=== PATIENT | male | born 1945 | race Caucasian/White ===

== ENCOUNTER → 2020-06-09 13:25 | Outpatient (BNVA) | payer MEDICARE, SELFPAY | PROVIDERS: PCP Family Medicine; Referring Provider Family Medicine; Visit Provider Internal Medicine | DX: I25.10 Atherosclerotic heart disease of native coronary artery without angina pectoris (principal); I44.0 Atrioventricular block, first degree; G47.33 Obstructive sleep apnea (adult) (pediatric); I12.9 Hypertensive chronic kidney disease with stage 1 through stage 4 chronic kidney disease, or unspecified chronic kidney disease; E11.22 Type 2 diabetes mellitus with diabetic chronic kidney disease; N18.9 Chronic kidney disease, unspecified; J44.9 Chronic obstructive pulmonary disease, unspecified | CPT/HCPCS: 99214 ==

== ENCOUNTER 2020-06-27 08:06 | Outpatient (REF) | payer MEDICARE, SELFPAY ==
[2020-06-27 10:02] LABS: Cholesterol 142 mg/dL; HDL Cholesterol 43 mg/dL; LDL Cholesterol Calculated 74 mg/dl; Triglycerides 128 mg/dL
== END 2020-06-27 08:07 | disposition home or self-care (01) ==
LOC: HO.LAB 08:06
PROVIDERS: PCP Family Medicine; Visit Provider Internal Medicine
DX: I25.10 Atherosclerotic heart disease of native coronary artery without angina pectoris (principal); E11.9 Type 2 diabetes mellitus without complications; Z78.9 Other specified health status
CPT/HCPCS: 80061

== ENCOUNTER 2020-08-24 13:04 | Outpatient (REF) | payer MEDICARE, SELFPAY ==
[2020-08-24 15:04] LABS: MANUAL DIFF FLAG NO
[2020-08-24 15:17] LABS: Basophils Absolute Auto 0.1 X10*3/uL (0.0-0.2); Basophils Percent Auto 0.7 % (0-2); Eosinophils Absolute Auto 0.4 X10*3/uL (0.0-0.4); Eosinophils Percent Auto 5.9 % (0-4); Hematocrit 37.8 % (42-52); Hemoglobin 12.8 g/dl (14.0-18.0); Imm Gran Abs Auto 0.02 X10*3/uL (0.00-0.03); Imm Gran Pct Auto 0.3 % (0.0-0.4); Lymphocytes Absolute Auto 1.5 X10*3/uL (1.2-4.9); Lymphocytes Percent Auto 21.7 % (20-40); Mean Corpuscular HGB Conc 33.9 g/dl (31.0-36.0); Mean Corpuscular Hemoglobin 29.6 pg (27.0-33.0); Mean Corpuscular Volume 87.3 fL (80-98); Monocytes Absolute Auto 0.5 X10*3/uL (0.1-1.2); Monocytes Percent Auto 7.4 % (2-11); Neutrophils Absolute Auto 4.5 X10*3/uL (2.0-8.3); Platelet Count 192 X10*3/uL (160-400); Red Blood Count 4.33 X10*6/uL (4.60-5.80); Red Cell Distribution Width 12.1 % (11.0-16.0)
[2020-08-24 15:25] LABS: Estimated Average Glucose 131 mg/dL; Hemoglobin A1c % 6.2 %
[2020-08-24 15:38] LABS: Alanine Aminotransferase 17 U/L (0-40); Albumin Level 4.2 g/dL (3.5-5.0); Alkaline Phosphatase 64 U/L (39-117); Anion Gap 15 (12-20); Aspartate Amino Transferase 18 U/L (5-37); Bilirubin Direct 0.3 mg/dL (0.0-0.5); Bilirubin Total 0.5 mg/dL (0.0-1.0); Blood Urea Nitrogen 32 mg/dL (9-16); Calcium 9.5 mg/dL (8.4-10.2); Carbon Dioxide 24 mmol/L (22-29); Chloride 103 mmol/L (96-108); Cholesterol 161 mg/dL; Estimated Glomerular Filt Rate 44; Glucose Random 110 mg/dL (60-115); HDL Cholesterol 46 mg/dL; LDL Cholesterol Calculated 90 mg/dl; Potassium 4.7 mmol/l (3.3-5.1); Sodium 137 mmol/L (135-145); Total Protein 7.3 g/dL (6.5-8.0); Triglycerides 128 mg/dL
[2020-08-24 16:02] LABS: Thyroid Stimulating Hormone 0.95 uIU/mL (0.32-4.0); Vitamin D 25-OH Total 40.8 ng/mL (>30)
[2020-08-24 17:16] LABS: Creatinine Urine 137.57 mg/dL
== END 2020-08-24 13:05 | disposition home or self-care (01) ==
LOC: HO.LAB 13:04
PROVIDERS: Visit Provider Family Medicine
DX: G47.33 Obstructive sleep apnea (adult) (pediatric) (principal); E11.9 Type 2 diabetes mellitus without complications; Z79.899 Other long term (current) drug therapy
CPT/HCPCS: 36415; 80048; 80061; 80076; 82043; 82306; 83036; 84439; 84443; 85025

== ENCOUNTER 2020-08-24 13:33 | Emergency (ER) | payer MEDICARE, SELFPAY ==
[2020-08-24 13:56] VITALS: BP 143/78; PULSE 59; RESP 16; TEMP 36.3; O2SAT 97; BMI 28.0
--- NOTE | 2020-08-24 14:51 | XR_ITS ---
EXAMINATION: XR HAND, LEFT CLINICAL INFORMATION: Third digit swelling and pain. COMPARISON: None TECHNIQUE: PA, lateral, and oblique views of the left hand. FINDINGS: There is loss of PIP and DIP joints of all digits with periarticular spurring DIP joints second, fifth digits. 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 No visible acute fracture or dislocation seen. XR/XR hand LT min 3V IMPRESSION: Degenerative arthritic changes. There is likely simple impose erosive changes PIP joint third digit with moderate soft tissue swelling. There is no underlying fracture or dislocation.
--- NOTE | 2020-08-24 15:54 | ED_ITS ---
HPI - Extremity Problem General Chief complaint: Extremity Injury, Upper Stated complaint: finger infection Time Seen by Provider: 08/24/20 14:51 Source: patient Mode of arrival: ambulatory Limitations: no limitations History of Present Illness HPI Narrative: Left middle finger swelling/redness for past 2 days. Location: left Relieving factors: nothing Associated symptoms: denies other symptoms Related Data Home Medications Medication Instructions Recorded Confirmed albuterol sulfate 2.5 mg INHALATION PRN 06/09/20 06/09/20 albuterol sulfate 90 mcg/actuation 0 mcg INHALATION 06/09/20 06/09/20 aerosol inhaler baclofen 10 mg tablet 10 mg PO TID 06/09/20 06/09/20 brimonidine 0.2 % eye drops 1 drp OPHTHALMIC (EYE) ONCE ml 06/09/20 06/09/20 candesartan 32 mg tablet 32 mg PO DAILY 06/09/20 06/09/20 cetirizine 10 mg tablet 10 mg PO DAILY 06/09/20 06/09/20 cholecalciferol (vitamin D3) 50 50 mcg PO DAILY 06/09/20 06/09/20 mcg (2,000 unit) capsule clonidine HCl 0.3 mg tablet 0 mg PO 06/09/20 06/09/20 epinephrine 0.3 mg/0.3 mL IM 06/09/20 06/09/20 injection, auto-injector erythromycin 5 mg/gram (0.5 %) eye 0 mg OPHTHALMIC (EYE) 06/09/20 06/09/20 ointment fluticasone 250 mcg-salmeterol 50 ea INHALATION 06/09/20 06/09/20 mcg/dose blistr powdr for inhalation hydrochlorothiazide 25 mg tablet 25 mg PO DAILY 06/09/20 06/09/20 lorazepam 1 mg tablet 0 mg PO 06/09/20 06/09/20 omeprazole 20 mg capsule,delayed 0 mg PO 06/09/20 06/09/20 release timolol maleate 0.5 % eye drops 1 drp OPHTHALMIC (EYE) DAILY ml 06/09/20 06/09/20 travoprost 0.004 % eye drops 0 drp OPHTHALMIC (EYE) 06/09/20 06/09/20 Previous Rx's Medication Instructions Recorded alirocumab 75 mg/mL subcutaneous 75 mg SUBCUT Q2W 90 Days #7 ml 08/23/20 pen injector cephalexin [Keflex] 250 mg PO BID 7 Days #14 cap 08/24/20 doxycycline monohydrate 100 mg PO BID #7 cap 08/24/20 prednisone 20 mg PO DAILY 5 Days #5 tab 08/24/20 Allergies Allergy/AdvReac Type Severity Reaction Status Date / Time amoxicillin [AMOXICILLIN] Allergy Severe Angioedema Verified 06/09/20 08:32 cephalexin [From KEFLEX] Allergy Severe Testicle Verified 06/09/20 08:32 swelling, Angioedema ezetimibe [Zetia] Allergy Severe Anaphylaxis Verified 06/09/20 08:32 Thqqpdj-Xyq-Dbo Reductase Allergy Severe Anaphylaxis Verified 06/09/20 08:32 Inhibitor [[id number] REDUCTASE INHIBITOR] diphenhydramine AdvReac Unknown Muscle Verified 06/09/20 08:32 [From BENADRYL] spasms/twitching Review of Systems Review of Systems: Constitutional: No Weight loss, No Fever, No Chills, No Night Sweats, No Fatigue, No Malaise ENT/Mouth: No Hearing loss, No Ear Pain, No Nasal Congestion, No Sinus Pain, No Hoarseness, No sore throat Eyes: No Eye Pain, No Swelling, No Redness, No Foreign Body, No Discharge, No Vision Changes Cardiovascular: No Chest Pain, No SOB, No Dyspnea on Exertion, No Orthopnea, No Edema, No Palpitations Respiratory: No Dyspnea Gastrointestinal: No abdominal Pain Musculoskeletal: No joint pain, No Myalgias, as noted in HPI Skin: No Skin Lesions, No rash Neuro: No Headache Psych: No Social Issues Heme/Lymph: No Bruising, No Bleeding,No Lymphadenopathy Endocrine: No Polyuria, No Polydipsia, No Temperature Intolerance Yes all other systems are reviewed and are negative [facility] Past Medical History Medical History (Updated 08/25/20 @ 00:00 by Abi Pedersen) 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 Mother No problems noted. Social History Social History Smoking Status: Former smoker Advance Directives: No Advance Directives Information Provided: Yes Physical Exam Vital Signs: Vital Signs: Last Vital Signs Temp 97.4 F 08/24/20 13:56 Pulse 59 08/24/20 13:56 Resp 16 08/24/20 13:56 BP 143/78 H 08/24/20 13:56 Pulse Ox 97 08/24/20 13:56 Body Mass Index 28.0 Reviewed Const: General: cooperative and healthy appearing; No acute distress or intoxicated appearing Nutritional Appearance: average body habitus Orientation/consciousness: patient oriented x3 Chest: Chest palpation & inspection: normal inspection of the chest Resp: Effort & Inspection: normal respiratory effort : General: Yes no CVA tenderness Back/Spine/Pelvis: Back: no CVA tenderness Skin: General skin exam: no rashes or lesions noted Neuro: General: patient oriented x3 Extrem: Other: General: Yes normal to inspection Course Course Course Narrative: X-ray shows degenerative arthritic changes there is likely simple imposed erosive changes of the PIP joint 3rd digit with moderate soft tissue swelling. No underlying fracture dislocation. Clinically inflammatory versus cellulitic versus arthritic. Will cover with short course prednisone and p.o. antibiotics. No systemic symptoms. Case discussed with orthopedics agreeable will see in office. Consultations Consultation #1: Panda FAYE Consultation #2: Case discussed with attending Dr. Rodriguez who evaluated the patient bedside Discharge Plan Discharge Clinical Impression: Cellulitis of finger of left hand Patient Disposition: Home, Self-Care Instructions: Cellulitis (ED) Prescriptions: New prednisone 20 mg tablet 20 mg PO DAILY 5 Days Qty: 5 RF: 0 doxycycline monohydrate 100 mg capsule 100 mg PO BID Qty: 7 RF: 0 cephalexin [Keflex] 250 mg capsule 250 mg PO BID 7 Days Qty: 14 RF: 0 No Action alirocumab [Praluent Pen] 75 mg/mL pen injector 75 mg subcut Q2W 90 Days Qty: 7 RF: 3 cholecalciferol (vitamin D3) 50 mcg (2,000 unit) capsule 50 mcg PO DAILY RF: 0 erythromycin 5 mg/gram (0.5 %) ointment 0 mg ophthalmic (eye) RF: 0 timolol maleate 0.5 % drops 1 drp ophthalmic (eye) DAILY RF: 0 omeprazole 20 mg capsule,delayed release(DR/EC) 0 mg PO RF: 0 brimonidine 0.2 % drops 1 drp ophthalmic (eye) ONCE RF: 0 candesartan 32 mg tablet 32 mg PO DAILY RF: 0 clonidine HCl 0.3 mg tablet 0 mg PO RF: 0 lorazepam 1 mg tablet 0 mg PO RF: 0 hydrochlorothiazide 25 mg tablet 25 mg PO DAILY RF: 0 fluticasone propion-salmeterol 250-50 mcg/dose blister with device inhalation RF: 0 albuterol sulfate 2.5 mg /3 mL (0.083 %) solution for nebulization 2.5 mg inhalation PRNRF: 0 epinephrine 0.3 mg/0.3 mL auto-injector IM RF: 0 albuterol sulfate 90 mcg/actuation HFA aerosol inhaler 0 mcg inhalation RF: 0 baclofen 10 mg tablet 10 mg PO TID RF: 0 travoprost 0.004 % drops 0 drp ophthalmic (eye) RF: 0 cetirizine 10 mg tablet 10 mg PO DAILY RF: 0 Referrals: Ezra Knight MD [Physician] - 5 days Interventions: ED Discharge Assessment Last Done: 08/24/20 16:57 Discharge Date/Time: 08/24/20 16:59
== END 2020-08-24 16:59 | disposition home or self-care (01) ==
PROVIDERS: Emergency Provider Emergency Medicine; PCP Family Medicine
DX: L03.012 Cellulitis of left finger (principal); E11.22 Type 2 diabetes mellitus with diabetic chronic kidney disease; I12.9 Hypertensive chronic kidney disease with stage 1 through stage 4 chronic kidney disease, or unspecified chronic kidney disease; N18.9 Chronic kidney disease, unspecified
CPT/HCPCS: 73130; 99283

== ENCOUNTER → 2020-11-10 08:16 | Outpatient (BNVA) | payer MEDICARE, SELFPAY | PROVIDERS: PCP Family Medicine; Visit Provider Internal Medicine | DX: I25.10 Atherosclerotic heart disease of native coronary artery without angina pectoris (principal); I44.0 Atrioventricular block, first degree; G47.33 Obstructive sleep apnea (adult) (pediatric); I12.9 Hypertensive chronic kidney disease with stage 1 through stage 4 chronic kidney disease, or unspecified chronic kidney disease; E11.22 Type 2 diabetes mellitus with diabetic chronic kidney disease; N18.9 Chronic kidney disease, unspecified; J44.9 Chronic obstructive pulmonary disease, unspecified; Z79.899 Other long term (current) drug therapy; Z78.9 Other specified health status; Z87.891 Personal history of nicotine dependence | CPT/HCPCS: Q3014 ==

== ENCOUNTER 2020-12-14 07:56 | Outpatient (REF) | payer MEDICARE, SELFPAY ==
[2020-12-14 08:09] LABS: COVID-19 Test Positive (Negative)
== END 2020-12-14 07:57 | disposition home or self-care (01) ==
LOC: HO.LAB 07:56
PROVIDERS: Visit Provider Internal Medicine
DX: Z20.822 Contact with and (suspected) exposure to COVID-19 (principal)
CPT/HCPCS: 36415; 87635; C9803

== ENCOUNTER 2020-12-23 12:21 | Emergency (ER) | payer MEDICARE, SELFPAY ==
--- NOTE | ~2020-12-23 | XR_ITS ---
EXAMINATION: XR CHEST CLINICAL INFORMATION: covid+ COMPARISON: 05/28/2019 TECHNIQUE: Frontal view of the chest was obtained. FINDINGS: Lungs appear relatively clear aside from a few calcified granulomas within the right midlung. No consolidation, pneumothorax, or pleural effusion. Cardiac and mediastinal contours are normal. Pulmonary vasculature is normal. No acute osseous findings. XR/XR chest 1V IMPRESSION: No acute pulmonary findings.
--- NOTE | 2020-12-23 12:58 | ED_ITS ---
HPI - SOB/Dyspnea General Chief Complaint: Upper Respiratory Symptoms Stated Complaint: covid + Time Seen by Provider: 12/23/20 12:56 Source: patient Mode of arrival: ambulatory History of Present Illness HPI Narrative: 75-year-old male with a past medical history of CKD, COPD, HTN, NATHANIEL, diabetes, 1st degree AV block, COVID-19 positive on 12/14/2020 presenting to the ED complaining of productive cough of yellow sputum x a couple days. D enies fever, chills, shortness of breath, chest pain, dominating, nausea/vomiting, LE edema, calf pain MD elicited complaint: cough Related Data Home Medications Medication Instructions Recorded Confirmed albuterol sulfate 2.5 mg INHALATION PRN 06/09/20 11/10/20 albuterol sulfate 90 mcg/actuation 0 mcg INHALATION 06/09/20 11/10/20 aerosol inhaler baclofen 10 mg tablet 10 mg PO TID 06/09/20 11/10/20 brimonidine 0.2 % eye drops 1 drp OPHTHALMIC (EYE) ONCE ml 06/09/20 11/10/20 candesartan 32 mg tablet 32 mg PO DAILY 06/09/20 11/10/20 cetirizine 10 mg tablet 10 mg PO DAILY 06/09/20 11/10/20 cholecalciferol (vitamin D3) 50 50 mcg PO DAILY 06/09/20 11/10/20 mcg (2,000 unit) capsule epinephrine 0.3 mg/0.3 mL IM 06/09/20 11/10/20 injection, auto-injector fluticasone 250 mcg-salmeterol 50 ea INHALATION 06/09/20 11/10/20 mcg/dose blistr powdr for inhalation hydrochlorothiazide 25 mg tablet 25 mg PO DAILY 06/09/20 11/10/20 timolol maleate 0.5 % eye drops 1 drp OPHTHALMIC (EYE) DAILY ml 06/09/20 11/10/20 travoprost 0.004 % eye drops 0 drp OPHTHALMIC (EYE) 06/09/20 11/10/20 amlodipine 10 mg tablet 10 mg PO DAILY 11/10/20 11/10/20 clonidine HCl 0.3 mg tablet 0.3 mg PO BID tab 11/10/20 11/10/20 lorazepam 1 mg tablet 1 mg PO DAILY PRN tab 11/10/20 11/10/20 omeprazole 20 mg capsule,delayed 20 mg PO DAILY cap 11/10/20 11/10/20 release sertraline 100 mg tablet 300 mg PO Q OTHER DAY PRN 11/10/20 11/10/20 triamcinolone acetonide 55 mcg INTRANASAL 11/10/20 11/10/20 nasal spray aerosol Previous Rx's Medication Instructions Recorded alirocumab 75 mg/mL subcutaneous 75 mg SUBCUT Q2W 90 Days #7 ml 11/10/20 pen injector azithromycin See Rx Instructions .ROUTE 12/23/20 .COMPLEX #6 tab benzonatate [Tessalon Perles] 100 mg PO TID PRN #14 cap 12/23/20 Allergies Allergy/AdvReac Type Severity Reaction Status Date / Time amoxicillin [AMOXICILLIN] Allergy Severe Angioedema Verified 12/23/20 13:04 cephalexin [From KEFLEX] Allergy Severe Testicle Verified 12/23/20 13:04 swelling, Angioedema ezetimibe [Zetia] Allergy Severe Anaphylaxis Verified 12/23/20 13:04 Bkdorzx-Ykx-Olo Reductase Allergy Severe Anaphylaxis Verified 12/23/20 13:04 Inhibitor [[id number]-OCL REDUCTASE INHIBITOR] diphenhydramine AdvReac Unknown Muscle Verified 12/23/20 13:04 [From BENADRYL] spasms/twitching Review of Systems Review of Systems: Constitutional: No Fever, No Chills, No Fatigue, No Malaise Cardiovascular: No Chest Pain, No SOB, No Edema Respiratory: + Cough, + Sputum, No Wheezing Gastrointestinal: No Nausea, No Vomiting, No Diarrhea, No Constipation, No Abdominal pain Musculoskeletal: No joint pain, No Myalgias, No Joint Swelling Skin: No Skin Lesions, No rash Neuro: No Weakness, No Numbness, No Headache PMFSH Past Medical History Attestation statement: The following information was validated with the patient. Medical History (Updated 12/23/20 @ 13:44 by NEYDA Lora) 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 Mother No problems noted. Social History Social History Smoking Status: Former smoker Advance Directives: No Advance Directives Information Provided: No Physical Exam Vital Signs: Vital Signs: Last Vital Signs Temp 98.0 F 12/23/20 13:00 Pulse 63 12/23/20 13:00 Resp 18 12/23/20 13:00 BP 126/71 12/23/20 13:00 Pulse Ox 96 12/23/20 13:47 Body Mass Index 28.0 Const: General: cooperative and healthy appearing Orientation/consciousness: patient oriented x3 Limitations: no limitations HENMT: Head: Yes normal to inspection Ears: hearing grossly normal bilaterally General nose exam: Normal external nose present Face and sinus: Yes normal facial exam Eyes: General: appearance normal, both eyes and all related structures EOM: EOMs intact bilaterally Neck: Neck: Yes normal visual inspection and Yes no meningeal signs Chest: Chest palpation & inspection: normal inspection of the chest Resp: Effort & Inspection: normal respiratory effort Auscultation: clear to auscultation bilaterally, no rales, no rhonchi and no wheezes Cardio: Rate: regular rate Heart sounds: S1 normal heart sound present and S2 normal heart sound present GI: Inspection: Yes normal to inspection Palpation (GI): Soft to palpation, nontender, no guarding and not rigid Skin: Rashes: no rashes Wounds: no wounds Neuro: General: patient oriented x3 and no meningeal signs Gait exam (Neuro): Normal gait present Extrem: General: Yes normal to inspection, Yes no pedal edema and Yes no calf tenderness Course Course Course Narrative: XR chest 1V IMPRESSION: No acute pulmonary findings. -patient ambulated in the ED with pulse ox maintaining saturations of 95-96 on r oom air without any difficulty breathing >> results discussed with patient. Due to symptomatology and risk factors will initiate patient on Z-Christiano and Tessalon Perles. Worrisome signs and symptoms and strict return precautions discussed. He verbalized understanding feel safe for discharge home MDM - SOB/Dyspnea MDM Narrative Medical decision making narrative: 75-year-old male with a past medical history of CKD, COPD, HTN, NATHANIEL, diabetes, 1st degree AV block, COVID-19 positive on 12/14/2020 presenting to the ED complaining of productive cough of yellow sputum x a couple days. On exam VS, NAD/well-appearing, lungs CTA, no pedal edema or calf tenderness. Concern for COVID-19/viral pneumonia vs superimposed bacterial pneumonia. Low concern for PE/ACS Plan: CXR Discharge Plan Discharge Clinical Impression: COVID-19 Patient Disposition: Home, Self-Care Instructions: COVID-19 (Coronavirus Disease 2019) (ED) Additional Instructions: Your x-ray was unremarkable today in the ED, her oxygen was good even with ambulation Azithromycin as antibiotic, take as prescribed Tessalon Perles for cough, take as needed Call your doctor for follow-up If her symptoms persist or worsen, constant worsening shortness breath, chest pain, fever unresolved with Tylenol or Motrin return to the ED Prescriptions: New azithromycin 250 mg tablet See Rx Instructions .ROUTE .COMPLEX Qty: 6 RF: 0 benzonatate [Tessalon Perles] 100 mg capsule 100 mg PO TID PRN (Reason: cough) Qty: 14 RF: 0 No Action cholecalciferol (vitamin D3) 50 mcg (2,000 unit) capsule 50 mcg PO DAILY RF: 0 timolol maleate 0.5 % drops 1 drp ophthalmic (eye) DAILY RF: 0 brimonidine 0.2 % drops 1 drp ophthalmic (eye) ONCE RF: 0 candesartan 32 mg tablet 32 mg PO DAILY RF: 0 hydrochlorothiazide 25 mg tablet 25 mg PO DAILY RF: 0 fluticasone propion-salmeterol 250-50 mcg/dose blister with device inhalation RF: 0 albuterol sulfate 2.5 mg /3 mL (0.083 %) solution for nebulization 2.5 mg inhalation PRNRF: 0 epinephrine 0.3 mg/0.3 mL auto-injector IM RF: 0 albuterol sulfate 90 mcg/actuation HFA aerosol inhaler 0 mcg inhalation RF: 0 baclofen 10 mg tablet 10 mg PO TID RF: 0 travoprost 0.004 % drops 0 drp ophthalmic (eye) RF: 0 cetirizine 10 mg tablet 10 mg PO DAILY RF: 0 clonidine HCl 0.3 mg tablet 0.3 mg PO BID RF: 0 lorazepam 1 mg tablet 1 mg PO DAILY PRNRF: 0 omeprazole 20 mg capsule,delayed release(DR/EC) 20 mg PO DAILY RF: 0 sertraline 100 mg tablet 300 mg PO Q OTHER DAY PRNRF: 0 amlodipine 10 mg tablet 10 mg PO DAILY RF: 0 triamcinolone acetonide 55 mcg aerosol,spray intranasal RF: 0 Praluent Pen 75 mg/mL pen injector 75 mg subcut Q2W 90 Days Qty: 7 RF: 4 Referrals: Andree Turner DO [Primary Care Provider] - 2 days
[2020-12-23 13:00] VITALS: BP 126/71; PULSE 63; RESP 18; TEMP 36.7; O2SAT 94; BMI 28.0
[2020-12-23 13:47] VITALS: O2SAT 96
--- NOTE | 2020-12-23 13:48 | PC.NURSE ---
PT AMBULATED AROUND ED 200 FT AND BACK TO ROOM WITH O2 SAT OF 96-95%. NO DIFF BREATHING, NO NASAL FLARING OR RETRACTIONS.
== END 2020-12-23 14:20 | disposition home or self-care (01) ==
PROVIDERS: Emergency Provider Emergency Medicine; PCP Family Medicine
DX: U07.1 COVID-19 (principal); E11.22 Type 2 diabetes mellitus with diabetic chronic kidney disease; I12.9 Hypertensive chronic kidney disease with stage 1 through stage 4 chronic kidney disease, or unspecified chronic kidney disease; N18.9 Chronic kidney disease, unspecified; J44.9 Chronic obstructive pulmonary disease, unspecified; Z79.899 Other long term (current) drug therapy
CPT/HCPCS: 71045; 99283

== ENCOUNTER 2021-03-02 10:20 | Outpatient (REF) | payer MEDICARE, SELFPAY ==
--- NOTE | ~2021-03-02 | US_ITS ---
EXAMINATION: US RETROPERITONEAL LIMITED (RENAL ONLY) CLINICAL INFORMATION: Renal cyst. COMPARISON: CT abdomen and pelvis 05/28/2019. Ultrasound abdomen complete 02/27/2019. Renal ultrasound 01/12/2019. TECHNIQUE: Real-time imaging of the kidneys. FINDINGS: RIGHT KIDNEY: 11.3 x 5.0 x 4.0 cm (SAG x AP x TRV). The kidney is normal in size, contour, and echogenicity. Renal cortical thickness is normal. No renal calculi or hydronephrosis. Multiple anechoic cysts. The largest cyst measures 2.9 x 2.3 x 2.4 cm in the midpole. LEFT KIDNEY: 10.7 x 5.8 x 4.0 cm (SAG x AP x TRV). The kidney is normal in size, contour, and echogenicity. Renal cortical thickness is normal. No renal calculi or hydronephrosis. There are multiple anechoic cysts. The largest cyst in the upper pole measures 3.3 x 3.4 x 3.2 cm. US/US renal BI IMPRESSION: Multiple bilateral anechoic cysts. No echogenic stones or hydronephrosis.
== END 2021-03-02 10:21 | disposition home or self-care (01) ==
LOC: HO.US 10:20
PROVIDERS: Visit Provider Family Medicine
DX: N28.1 Cyst of kidney, acquired (principal)
CPT/HCPCS: 76775

== ENCOUNTER → 2021-03-14 09:00 | Outpatient (BNVA) | payer MEDICARE, SELFPAY | PROVIDERS: PCP Family Medicine; Visit Provider Student in an Organized Health Care Education/Training Program | DX: M19.042 Primary osteoarthritis, left hand (principal) | CPT/HCPCS: 99202 ==

== ENCOUNTER → 2021-05-15 10:38 | Outpatient (BNVA) | payer MEDICARE, SELFPAY | PROVIDERS: PCP Family Medicine; Referring Provider Family Medicine; Visit Provider Internal Medicine | DX: I25.10 Atherosclerotic heart disease of native coronary artery without angina pectoris (principal); I44.0 Atrioventricular block, first degree; G47.33 Obstructive sleep apnea (adult) (pediatric); E11.9 Type 2 diabetes mellitus without complications; I10 Essential (primary) hypertension; Z78.9 Other specified health status | CPT/HCPCS: 93005; 99212 ==

== ENCOUNTER → 2021-06-05 08:14 | Outpatient (REF) | payer MEDICARE, SELFPAY ==
[2021-06-05 09:28] LABS: Hematocrit 36.4 % (42-52); Hemoglobin 12.6 g/dl (14.0-18.0); Mean Corpuscular HGB Conc 34.6 g/dl (31.0-36.0); Mean Corpuscular Hemoglobin 29.5 pg (27.0-33.0); Mean Corpuscular Volume 85.2 fL (80-98); Mean Platelet Volume 9.8 fL (9.4-12.4); Platelet Count 152 X10*3/uL (160-400); Red Blood Count 4.27 X10*6/uL (4.60-5.80); Red Cell Distribution Width 12.5 % (11.0-16.0); White Blood Count 6.5 X10*3/uL (4.8-10.8)
[2021-06-05 09:46] LABS: Estimated Average Glucose 117 mg/dL; Hemoglobin A1c % 5.7 %
[2021-06-05 09:51] LABS: Alanine Aminotransferase 15 U/L (0-40); Albumin Level 4.2 g/dL (3.5-5.0); Alkaline Phosphatase 62 U/L (39-117); Anion Gap 13 (12-20); Aspartate Amino Transferase 17 U/L (5-37); Bilirubin Direct 0.2 mg/dL (0.0-0.5); Bilirubin Total 0.3 mg/dL (0.0-1.0); Blood Urea Nitrogen 33 mg/dL (9-16); Calcium 9.9 mg/dL (8.4-10.2); Carbon Dioxide 26 mmol/L (22-29); Chloride 103 mmol/L (96-108); Cholesterol 143 mg/dL; Estimated Glomerular Filt Rate 47; Glucose Random 135 mg/dL (60-115); HDL Cholesterol 47 mg/dL; Iron 67 mcg/dL (45-160); LDL Cholesterol Calculated 77 mg/dl; Percent Iron Saturation 17 % (15-50); Potassium 4.6 mmol/L (3.3-5.1); Sodium 137 mmol/L (135-145); Total Iron Binding Capacity 388 mcg/dL (228-428); Total Protein 7.1 g/dL (6.5-8.0); Triglycerides 98 mg/dL; Unsaturated Iron Binding 321 ug/dL
[2021-06-05 10:14] LABS: Ferritin 83 ng/mL (20-250); Free T4 (Free Thyroxine) 0.91 ng/dL (0.71-1.85); Thyroid Stimulating Hormone 1.64 uIU/mL (0.32-4.0); Vitamin D 25-OH Total 42.6 ng/mL (>30)
[2021-06-05 10:19] LABS: Creatinine Urine 85.73 mg/dL; Microalbum/Creatinine Ratio Ur 10.4 ug/mg cr
[2021-06-05 10:40] LABS: Folate 9.1 ng/mL (> or = 4.0); Vitamin B12 225 pg/mL (200-900)
== END ==
LOC: HO.SL 08:14
PROVIDERS: Absent Provider Family Medicine; PCP Family Medicine; Visit Provider Internal Medicine
DX: I12.9 Hypertensive chronic kidney disease with stage 1 through stage 4 chronic kidney disease, or unspecified chronic kidney disease (principal); E11.22 Type 2 diabetes mellitus with diabetic chronic kidney disease; N18.30 Chronic kidney disease, stage 3 unspecified
CPT/HCPCS: 36415; 80048; 80061; 80076; 82043; 82306; 82607; 82728; 82746; 83036; 83540; 84439; 84443; 85027

== ENCOUNTER 2021-09-28 15:00 | Outpatient (REF) | payer SELFPAY | END 2021-09-28 15:01 | disposition home or self-care (01) | LOC: HO.HAP 15:00 | PROVIDERS: Visit Provider Family Medicine | DX: Z13.89 Encounter for screening for other disorder (principal) ==

== ENCOUNTER → 2022-01-23 08:45 | Outpatient (REF) | payer MEDICARE, SELFPAY | LOC: HO.SL 08:45 | PROVIDERS: PCP Family Medicine; Visit Provider Internal Medicine | DX: G47.33 Obstructive sleep apnea (adult) (pediatric) (principal) | CPT/HCPCS: 95806 ==

== ENCOUNTER → 2022-03-06 09:19 | Outpatient (BNVA) | payer OTHER, SELFPAY | PROVIDERS: PCP Family Medicine; Visit Provider Internal Medicine | DX: G47.33 Obstructive sleep apnea (adult) (pediatric) (principal); J44.9 Chronic obstructive pulmonary disease, unspecified | CPT/HCPCS: 99202 ==

== ENCOUNTER → 2022-03-08 10:12 | Outpatient (BNVA) | payer OTHER, SELFPAY | PROVIDERS: PCP Family Medicine; Referring Provider Family Medicine; Visit Provider Internal Medicine | DX: I25.10 Atherosclerotic heart disease of native coronary artery without angina pectoris (principal); I44.0 Atrioventricular block, first degree; G47.33 Obstructive sleep apnea (adult) (pediatric); E11.9 Type 2 diabetes mellitus without complications; I10 Essential (primary) hypertension; Z78.9 Other specified health status; Z79.82 Long term (current) use of aspirin; Z79.899 Other long term (current) drug therapy | CPT/HCPCS: 99212 ==

== ENCOUNTER 2022-04-03 07:50 | Outpatient (REF) | payer OTHER, SELFPAY ==
--- NOTE | 2022-04-03 09:11 | PFT_ITS ---
Forced vital capacity 96%, FEV1 100%, FEV1/FVC ratio is 75, [id number] 103%, and MVV 84%. After bronchodilator therapy, no significant changes noted. Total lung capacity 91%. Residual volume is 93%. Diffusion capacity is 60. CONCLUSION: Normal pulmonary function test and no evidence of obstructive or restrictive pulmonary disorder. Slight decrease in diffusion capacity is nonspecific, may be due to pulmonary emphysema and also nonpulmonary factors for which clinical correlation is recommended. Compared to the results of 11/26/2018, there is no significant change. Romero Castro MD MSB/MODL / [id number]
== END 2022-04-03 07:51 | disposition home or self-care (01) ==
LOC: HO.RESP 07:50
PROVIDERS: PCP Family Medicine; Visit Provider Internal Medicine
DX: J44.9 Chronic obstructive pulmonary disease, unspecified (principal)
CPT/HCPCS: 94060; 94727; 94729

== ENCOUNTER → 2022-04-16 09:05 | Outpatient (BNVA) | payer OTHER, SELFPAY | PROVIDERS: PCP Family Medicine; Visit Provider Internal Medicine | DX: G47.33 Obstructive sleep apnea (adult) (pediatric) (principal); J44.9 Chronic obstructive pulmonary disease, unspecified | CPT/HCPCS: 99212 ==

== ENCOUNTER 2022-07-19 08:13 | Outpatient (REF) | payer OTHER, SELFPAY ==
[2022-07-19 08:28] LABS: MANUAL DIFF FLAG NO
[2022-07-19 08:40] LABS: Basophils Absolute Auto 0.1 X10*3/uL (0.0-0.2); Eosinophils Absolute Auto 0.4 X10*3/uL (0.0-0.4); Eosinophils Percent Auto 7.5 % (0-4); Hematocrit 40.7 % (42.0-52.0); Hemoglobin 13.9 g/dl (14.0-18.0); Imm Gran Abs Auto 0.02 X10*3/uL (0.00-0.03); Imm Gran Pct Auto 0.3 % (0.0-0.4); Lymphocytes Absolute Auto 1.3 X10*3/uL (1.2-4.9); Lymphocytes Percent Auto 22.3 % (20-40); Mean Corpuscular HGB Conc 34.2 g/dl (31.0-36.0); Mean Corpuscular Hemoglobin 29.5 pg (27.0-33.0); Mean Corpuscular Volume 86.4 fL (80.0-98.0); Mean Platelet Volume 9.7 fL (9.4-12.4); Monocytes Absolute Auto 0.5 X10*3/uL (0.1-1.2); Neutrophils Absolute Auto 3.5 x10*3/uL (2.0-8.3); Neutrophils Percent Auto 59.9 % (45-73); Platelet Count 143 X10*3/uL (160-400); Red Blood Count 4.71 X10*6/uL (4.60-5.80); Red Cell Distribution Width 12.9 % (11.0-16.0); White Blood Count 5.9 X10*3/uL (4.8-10.8)
[2022-07-19 08:57] LABS: Estimated Average Glucose 120 mg/dL; Hemoglobin A1c % 5.8 %
[2022-07-19 09:07] LABS: Iron 62 mcg/dL (45-160); Percent Iron Saturation 17 % (15-50); Total Iron Binding Capacity 371 mcg/dL (228-428); Unsaturated Iron Binding 309 ug/dL
[2022-07-19 09:38] LABS: Alanine Aminotransferase 15 U/L (0-40); Albumin Level 4.2 g/dL (3.5-5.0); Alkaline Phosphatase 63 U/L (39-117); Anion Gap 12 (12-20); Aspartate Amino Transferase 15 U/L (5-37); Bilirubin Direct 0.2 mg/dL (0.0-0.5); Bilirubin Total 0.4 mg/dL (0.0-1.0); Blood Urea Nitrogen 28 mg/dL (9-16); Calcium 9.7 mg/dL (8.4-10.2); Carbon Dioxide 27 mmol/L (22-29); Chloride 107 mmol/L (96-108); Cholesterol 147 mg/dL; Estimated Glomerular Filt Rate 50; Free T4 (Free Thyroxine) 1.18 ng/dL (0.71-1.85); Glucose Random 134 mg/dL (60-115); HDL Cholesterol 45 mg/dL; LDL Cholesterol Calculated 68 mg/dl; Potassium 4.5 mmol/L (3.3-5.1); Sodium 141 mmol/L (135-145); Thyroid Stimulating Hormone 1.21 uIU/mL (0.32-4.0); Total Protein 7.2 g/dL (6.5-8.0); Triglycerides 174 mg/dL; Vitamin D 25-OH Total 41.8 ng/mL (>30)
[2022-07-19 09:51] LABS: Creatinine Urine 95.66 mg/dL; Microalbum/Creatinine Ratio Ur 153.6 ug/mg cr
== END 2022-07-19 08:14 | disposition home or self-care (01) ==
LOC: HO.LAB 08:13
PROVIDERS: Physician Assistant; PCP Family Medicine; Visit Provider Family Medicine
DX: Z01.818 Encounter for other preprocedural examination (principal); E11.22 Type 2 diabetes mellitus with diabetic chronic kidney disease; E78.5 Hyperlipidemia, unspecified; I10 Essential (primary) hypertension; Z79.899 Other long term (current) drug therapy; Z86.2 Personal history of diseases of the blood and blood-forming organs and certain disorders involving the immune mechanism
CPT/HCPCS: 36415; 80048; 80061; 80076; 82043; 82306; 83036; 83540; 84439; 84443; 85025; 99202

== ENCOUNTER → 2022-12-04 08:16 | Outpatient (BNVA) | payer OTHER, SELFPAY | PROVIDERS: PCP Family Medicine; Visit Provider Internal Medicine | DX: G47.33 Obstructive sleep apnea (adult) (pediatric) (principal); J44.9 Chronic obstructive pulmonary disease, unspecified | CPT/HCPCS: 99212 ==

== ENCOUNTER 2022-12-24 15:00 | Outpatient (REF) | payer SELFPAY | END 2022-12-24 15:01 | disposition home or self-care (01) | LOC: HO.HAP 15:00 | PROVIDERS: Visit Provider Family Medicine | DX: Z13.89 Encounter for screening for other disorder (principal) ==

== ENCOUNTER 2023-02-23 12:30 | Emergency (ER) | payer OTHER, MEDICAID, SELFPAY ==
[2023-02-23 12:46] VITALS: BP 190/86; PULSE 67; RESP 18; TEMP 37; O2SAT 98; BMI 28.8
--- NOTE | 2023-02-23 12:46 | ED_ITS ---
HPI - General Adult General Chief complaint: Dizziness Stated complaint: high bp Time Seen by Provider: 02/23/23 16:12 Source: patient Mode of arrival: ambulatory Limitations: no limitations History of Present Illness HPI narrative: History of chronic hypertension on multiple medication including clonidine 0.3 mg twice daily Candesartan 32 mg daily amlodipine 10 mg daily and been having fluctuating blood pressure all the time but lately has been high since yesterday checked the blood pressure was 202/118 at 2 pm and was feeling slightly dizzy on arrival patient's blood pressure was 190/86 repeat blood pressure was 186/77 with pulse rate of 62 patient had this problem off and on in the past had only 1 cup of coffee today no chest pain no palpitation no headache no vomiting no urinary symptoms Related Data Home Medications Medication Instructions Recorded Confirmed albuterol sulfate 2.5 mg/3 mL 2.5 mg inhalation PRN 06/09/20 12/04/22 (0.083 %) solution for nebulization candesartan 32 mg tablet 32 mg PO DAILY 06/09/20 12/04/22 cetirizine 10 mg tablet 10 mg PO DAILY 06/09/20 12/04/22 cholecalciferol (vitamin D3) 50 50 mcg PO DAILY 06/09/20 12/04/22 mcg (2,000 unit) capsule epinephrine 0.3 mg/0.3 mL IM 06/09/20 12/04/22 injection, auto-injector timolol maleate 0.5 % eye drops 1 drp ophthalmic (eye) DAILY 06/09/20 12/04/22 travoprost 0.004 % eye drops 0 drp ophthalmic (eye) 06/09/20 12/04/22 amlodipine 10 mg tablet 10 mg PO DAILY 11/10/20 12/04/22 clonidine HCl 0.3 mg tablet 0.3 mg PO BID 11/10/20 12/04/22 lorazepam 1 mg tablet 1 mg PO DAILY PRN 11/10/20 12/04/22 omeprazole 20 mg capsule,delayed 20 mg PO DAILY 11/10/20 12/04/22 release sertraline 100 mg tablet 150 mg PO DAILY 03/14/21 12/04/22 aspirin 81 mg tablet,delayed 81 mg PO DAILY 03/08/22 12/04/22 release (Adult Low Dose Aspirin) Previous Rx's Medication Instructions Recorded alirocumab 75 mg/mL subcutaneous 75 mg subcut Q2W 90 days #7 mL 10/01/22 pen injector (Praluent Pen) Allergies Allergy/AdvReac Type Severity Reaction Status Date / Time amoxicillin [AMOXICILLIN] Allergy Severe Angioedema Verified 02/23/23 15:42 cephalexin [From KEFLEX] Allergy Severe Testicle Verified 02/23/23 15:42 swelling, Angioedema ezetimibe [Zetia] Allergy Severe Anaphylaxis Verified 02/23/23 15:42 hydrochlorothiazide Allergy Severe dehydrate Verified 02/23/23 15:42 Hvmbcgo-[id number]-LlJ Reductase Allergy Severe Anaphylaxis Verified 02/23/23 15:42 Inhibitor [[id number] REDUCTASE INHIBITOR] diphenhydramine AdvReac Unknown Muscle Verified 02/23/23 15:42 [From BENADRYL] spasms/twitching Review of Systems Review of Systems: Yes all other systems are reviewed and are negative [facility] Past Medical History Medical History 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 Mother No problems noted. Social History Social History Patient Tobacco Use Status: Former Tobacco user Tobacco use type: Cigarette Cigarettes Per Day: 20 Years Smoked: 20 Smoked in Last 30 Days: Yes e-Cigarette/Vaping Use: Never Used Use of substances other than those prescribed or required for medical reasons: Yes Substance Use Type: Marijuana Substance Use Frequency: Daily Substance Use Frequency Other:: uses THC for arthritis daily ( cream) Last Used Substance: Days (ago) Any prior treatment program specific to substance use: No Advance Directives: No Advance Directives Information Provided: No Physical Exam ED Vital Signs: Vital Signs - 24 hr 02/23/23 12:46 02/23/23 14:44 02/23/23 17:15 Temperature 98.6 F 98.2 F Pulse Rate 67 62 59 Respiratory Rate 18 14 20 Blood Pressure 190/86 H 186/77 H 172/85 H Pulse Oximetry 98 97 96 Oxygen Delivery Method Room Air Room Air Room Air 02/23/23 17:15 02/23/23 17:16 02/23/23 17:17 Temperature Pulse Rate 59 64 66 Respiratory Rate Blood Pressure 172/85 H 169/85 H 184/88 H Pulse Oximetry Oxygen Delivery Method 02/23/23 17:35 Temperature 98.1 F Pulse Rate 59 Respiratory Rate 13 Blood Pressure 189/78 H Pulse Oximetry 97 Oxygen Delivery Method Room Air BMI result Body Mass Index 28.8 Appearance: Alert. Oriented X3. No acute distress. Eyes: PERRLA, No Nystagmus ENT: Pharynx normal. Oral Mucosa moist Neck: Normal inspection. Neck supple. CVS: Normal heart rate and rhythm. Pulses normal. Respiratory: No respiratory distress. Equal air entry bilateral, no wheezing/rales/rhonchi Abdomen: Soft and nontender. Bowel sounds are present, no mass palpable, no CVA tenderness Skin: Skin warm and dry. Normal skin color. Normal skin turgor. Extremities: No lower extremity edema. No calf tenderness Neuro: Oriented X 3. No motor deficit. No sensory deficit.No cerebellar signs , cranial nerves II-XII intact Course Course Course Narrative: This is an RME: Additional HPI, ROS, PE not included below will be deferred to primary provider. Patient is a 77-year-old male who presents to emergency department with reports of dizziness since yesterday, initially intermittent, now constant, made worse with position changes. History of vertigo, but this feels different and that his entire body feels weak. Today with hypertension, took his routine antihypertensives this morning; clonidine. Denies any pain, fevers, shortness of breath. Denies any recent medication changes. Plan: Labs, urinalysis, EKG Medical Decision Making Medical Decision Making MDM Narrative: Patient chronic hypertension with frequent episodic elevation of the blood pressure on multiple medications came here for elevated blood pressure with dizziness during stay in the ER patient felt better blood pressure improved to 166/81 patient is due for his clonidine at 20:00 at this time patient is asymptomatic will check orthostatic advised to follow with indirect sales representative and to take clonidine 1.5 mg as needed for hypertension Lab Data [facility] Lab Attestation statement: I reviewed the patient's lab results. 02/23/23 13:05 02/23/23 13:05 Labs: Lab Results 02/23/23 02/23/23 02/23/23 Range/Units 13:05 13:05 13:05 WBC 5.4 (4.8-10.8) X10*3/uL RBC 4.54 L (4.60-5.80) X10*6/uL Hgb 13.5 L (14.0-18.0) g/dl Hct 38.6 L (42.0-52.0) % MCV 85.0 (80.0-98.0) fL MCH 29.7 (27.0-33.0) pg MCHC 35.0 (31.0-36.0) g/dl RDW 12.8 (11.0-16.0) % Plt Count 153 L (160-400) X10*3/uL MPV 9.4 (9.4-12.4) fL Immature Gran % (Auto) 0.2 (0.0-0.4) % Neut % (Auto) 64.6 (45-73) % Lymph % (Auto) 20.2 (20-40) % [place] % (Auto) 7.7 (2-11) % Eos % (Auto) 6.7 H (0-4) % Baso % (Auto) 0.6 (0-2) % Lymph # (Auto) 1.1 L (1.2-4.9) X10*3/uL [place] # (Auto) 0.4 (0.1-1.2) X10*3/uL Eos # (Auto) 0.4 (0.0-0.4) X10*3/uL Baso # (Auto) 0.0 (0.0-0.2) X10*3/uL Abs Immat Gran (auto) 0.01 (0.00-0.03) X10*3/uL Absolute Neuts (auto) 3.5 (2.0-8.3) x10*3/uL Absolute Nucleated RBC 0.000 (0.0-0.012) X10*3/uL Nucleated RBC % (auto) 0.0 (0.0-0.2) /100WBC Sodium 138 (135-145) mmol/L Potassium 4.4 (3.3-5.1) mmol/L Chloride 104 (96-108) mmol/L Carbon Dioxide 25 (22-29) mmol/L Anion Gap 13 (12-20) BUN 21 H (9-16) mg/dL Creatinine 1.14 (0.5-1.4) mg/dL Estim Creat Clear Calc 60.6 Estimated GFR > 60 Random Glucose 116 H (60-115) mg/dL Calcium 10.4 H D (8.4-10.2) mg/dL Magnesium 1.8 (1.6-2.6) mg/dL Total Bilirubin 0.7 (0.0-1.0) mg/dL AST 18 (5-37) U/L ALT 16 (0-40) U/L Alkaline Phosphatase 63 (39-117) U/L Troponin I High Sens < 2.7 (<3.5-35.0) ng/L B-Natriuretic Peptide (<100) pg/mL Total Protein 7.5 (6.5-8.0) g/dL Albumin 4.3 (3.5-5.0) g/dL Urine Color Urine Appearance Urine pH (5.0-9.0) Ur Specific [place] (1.005-1.025) Urine Protein (Neg-Trace) mg/dL Urine Glucose (UA) (Negative) mg/dL Urine Ketones (Negative) mg/dL Urine Blood (Negative) Urine Nitrite (Negative) Ur Leukocyte Esterase (Negative) 02/23/23 02/23/23 Range/Units 13:05 15:39 WBC (4.8-10.8) X10*3/uL RBC (4.60-5.80) X10*6/uL Hgb (14.0-18.0) g/dl Hct (42.0-52.0) % MCV (80.0-98.0) fL MCH (27.0-33.0) pg MCHC (31.0-36.0) g/dl RDW (11.0-16.0) % Plt Count (160-400) X10*3/uL MPV (9.4-12.4) fL Immature Gran % (Auto) (0.0-0.4) % Neut % (Auto) (45-73) % Lymph % (Auto) (20-40) % [place] % (Auto) (2-11) % Eos % (Auto) (0-4) % Baso % (Auto) (0-2) % Lymph # (Auto) (1.2-4.9) X10*3/uL [place] # (Auto) (0.1-1.2) X10*3/uL Eos # (Auto) (0.0-0.4) X10*3/uL Baso # (Auto) (0.0-0.2) X10*3/uL Abs Immat Gran (auto) (0.00-0.03) X10*3/uL Absolute Neuts (auto) (2.0-8.3) x10*3/uL Absolute Nucleated RBC (0.0-0.012) X10*3/uL Nucleated RBC % (auto) (0.0-0.2) /100WBC Sodium (135-145) mmol/L Potassium (3.3-5.1) mmol/L Chloride (96-108) mmol/L Carbon Dioxide (22-29) mmol/L Anion Gap (12-20) BUN (9-16) mg/dL Creatinine (0.5-1.4) mg/dL Estim Creat Clear Calc Estimated GFR Random Glucose (60-115) mg/dL Calcium (8.4-10.2) mg/dL Magnesium (1.6-2.6) mg/dL Total Bilirubin (0.0-1.0) mg/dL AST (5-37) U/L ALT (0-40) U/L Alkaline Phosphatase (39-117) U/L Troponin I High Sens (<3.5-35.0) ng/L B-Natriuretic Peptide 74 (<100) pg/mL Total Protein (6.5-8.0) g/dL Albumin (3.5-5.0) g/dL Urine Color Yellow Urine Appearance Clear Urine pH 7.0 (5.0-9.0) Ur Specific [place] 1.010 (1.005-1.025) Urine Protein Trace (Neg-Trace) mg/dL Urine Glucose (UA) Negative (Negative) mg/dL Urine Ketones Negative (Negative) mg/dL Urine Blood Negative (Negative) Urine Nitrite Negative (Negative) Ur Leukocyte Esterase Negative (Negative) Independent Interpretation I performed an independent interpretation of an: EKG Interpretation: Normal sinus rhythm heart rate 62 beats per minute , 1st degree I AV block no acute ST-T changes no acute ischemia Discharge Plan Discharge Clinical Impression: Essential (primary) hypertension Patient Disposition: Home, Self-Care Instructions: Chronic Hypertension (ED) Additional Instructions: Continue blood pressure medications Check blood pressure before taking medications and during the daytime If during daytime blood pressure is higher than 160/100 you may take half a tablet of 0.3 clonidine and recheck blood pressure Follow-up with the indirect sales representative next week as scheduled Prescriptions: No Action Praluent Pen 75 mg/mL pen injector 75 mg subcut Q2W 90 Days Qty: 7 4RF cholecalciferol (vitamin D3) 50 mcg (2,000 unit) capsule 50 mcg PO DAILY timolol maleate 0.5 % drops 1 drp ophthalmic (eye) DAILY candesartan 32 mg tablet 32 mg PO DAILY albuterol sulfate 2.5 mg /3 mL (0.083 %) solution for nebulization 2.5 mg inhalation PRN epinephrine 0.3 mg/0.3 mL auto-injector IM travoprost 0.004 % drops 0 drp ophthalmic (eye) cetirizine 10 mg tablet 10 mg PO DAILY clonidine HCl 0.3 mg tablet 0.3 mg PO BID lorazepam 1 mg tablet 1 mg PO DAILY PRN omeprazole 20 mg capsule,delayed release(DR/EC) 20 mg PO DAILY amlodipine 10 mg tablet 10 mg PO DAILY sertraline 100 mg tablet 150 mg PO DAILY aspirin [Adult Low Dose Aspirin] 81 mg tablet,delayed release (DR/EC) 81 mg PO DAILY Interventions: ED Discharge Assessment Last Done: 02/23/23 17:40 Discharge Date/Time: 02/23/23 17:41
--- NOTE | 2023-02-23 12:50 | ECG_ITS ---
Test Reason : HYPERTENTION,DIZZINESS Blood Pressure : / mmHG Vent. Rate : 062 BPM Atrial Rate : 062 BPM P-R Int : 346 ms QRS Dur : 092 ms QT Int : 418 ms P-R-T Axes : -01 -23 033 degrees QTc Int : 424 ms Sinus rhythm with 1st degree A-V block Otherwise normal ECG When compared with ECG of 28-MAY-2019 09:32, No significant change was found Referred By: Stefani Miller Electronically Signed By:KEVIN WHITTAKER
[2023-02-23 13:12] LABS: MANUAL DIFF FLAG NO
[2023-02-23 13:17] LABS: Basophils Percent Auto 0.6 % (0-2); Eosinophils Absolute Auto 0.4 X10*3/uL (0.0-0.4); Eosinophils Percent Auto 6.7 % (0-4); Hematocrit 38.6 % (42.0-52.0); Hemoglobin 13.5 g/dl (14.0-18.0); Imm Gran Abs Auto 0.01 X10*3/uL (0.00-0.03); Imm Gran Pct Auto 0.2 % (0.0-0.4); Lymphocytes Absolute Auto 1.1 X10*3/uL (1.2-4.9); Lymphocytes Percent Auto 20.2 % (20-40); Mean Corpuscular Hemoglobin 29.7 pg (27.0-33.0); Mean Platelet Volume 9.4 fL (9.4-12.4); Monocytes Absolute Auto 0.4 X10*3/uL (0.1-1.2); Monocytes Percent Auto 7.7 % (2-11); Neutrophils Absolute Auto 3.5 x10*3/uL (2.0-8.3); Neutrophils Percent Auto 64.6 % (45-73); Platelet Count 153 X10*3/uL (160-400); Red Blood Count 4.54 X10*6/uL (4.60-5.80); Red Cell Distribution Width 12.8 % (11.0-16.0); White Blood Count 5.4 X10*3/uL (4.8-10.8)
[2023-02-23 13:35] LABS: Alanine Aminotransferase 16 U/L (0-40); Albumin Level 4.3 g/dL (3.5-5.0); Alkaline Phosphatase 63 U/L (39-117); Anion Gap 13 (12-20); Aspartate Amino Transferase 18 U/L (5-37); Bilirubin Total 0.7 mg/dL (0.0-1.0); Blood Urea Nitrogen 21 mg/dL (9-16); Calcium 10.4 mg/dL (8.4-10.2); Carbon Dioxide 25 mmol/L (22-29); Chloride 104 mmol/L (96-108); Creatinine Clr Calc Pharmacy 60.6; Estimated Glomerular Filt Rate > 60; Glucose Random 116 mg/dL (60-115); Magnesium 1.8 mg/dL (1.6-2.6); Potassium 4.4 mmol/L (3.3-5.1); Sodium 138 mmol/L (135-145); Total Protein 7.5 g/dL (6.5-8.0)
[2023-02-23 13:41] LABS: B Type Natriuretic Peptide 74 pg/mL (<100)
[2023-02-23 13:42] LABS: Troponin-I High Sensitivity < 2.7 ng/L (<3.5-35.0)
[2023-02-23 14:44] VITALS: BP 186/77; PULSE 62; RESP 14; O2SAT 97
[2023-02-23 15:48] LABS: Appearance Urine Clear; Color Urine Yellow; Glucose Urine UA Negative (Negative); Leukocyte Esterase Urine Negative (Negative); Nitrite Urine Negative (Negative); Urine Blood Negative (Negative); Urine Ketones Negative (Negative); Urine Protein Trace mg/dL (Neg-Trace)
[2023-02-23 17:15] VITALS: BP 172/85; PULSE 59; RESP 20; TEMP 36.8; O2SAT 96
[2023-02-23 17:16] VITALS: BP 169/85; PULSE 64
[2023-02-23 17:17] VITALS: BP 184/88; PULSE 66
[2023-02-23 17:35] VITALS: BP 189/78; PULSE 59; RESP 13; TEMP 36.7; O2SAT 97
--- NOTE | 2023-02-23 17:35 | PC.NURSE ---
no need for a swallow eval per MD
== END 2023-02-23 17:41 | disposition home or self-care (01) ==
PROVIDERS: Nurse Practitioner Family; Emergency Provider Internal Medicine; PCP Family Medicine
DX: E11.22 Type 2 diabetes mellitus with diabetic chronic kidney disease (principal); I12.9 Hypertensive chronic kidney disease with stage 1 through stage 4 chronic kidney disease, or unspecified chronic kidney disease; N18.9 Chronic kidney disease, unspecified; F12.90 Cannabis use, unspecified, uncomplicated; Z87.891 Personal history of nicotine dependence; Z79.899 Other long term (current) drug therapy; Z79.82 Long term (current) use of aspirin
CPT/HCPCS: 36415; 80053; 81003; 83735; 83880; 84484; 85025; 93005; 99284; 99285

== ENCOUNTER 2023-03-21 10:10 | Outpatient (AMB) | payer OTHER, SELFPAY ==
--- NOTE | 2023-03-21 10:11 | A.OFFVIS_ITS ---
Intake Vital Signs 03/21/23 10:13 Height 5 ft 9 in Weight 191 lb 12.835 oz BMI 28.3 BP 176/76 H Blood Pressure Location Lt brachial Position Sitting Pulse 53 Intake Visit Reasons: 1 year follow up Intake Note: 1 year follow up Development Planner Required: No Accompanied by: Self / Same As Patient Allergies amoxicillin [AMOXICILLIN] Allergy (Severe, Verified 03/21/23 10:13) Angioedema cephalexin [From KEFLEX] Allergy (Severe, Verified 03/21/23 10:13) Testicle swelling, Angioedema ezetimibe [Zetia] Allergy (Severe, Verified 03/21/23 10:13) Anaphylaxis hydrochlorothiazide Allergy (Severe, Verified 03/21/23 10:13) dehydrate [id number]-FKF-[id number] Reductase Inhibitor [[id number]-[id number]-OJT REDUCTASE INHIBITOR] Allergy (Severe, Verified 03/21/23 10:13) Anaphylaxis diphenhydramine [From BENADRYL] Adverse Reaction (Unknown, Verified 03/21/23 10:13) Muscle spasms/twitching Medication List - Last Reconciled 03/21/23 by Donald Scott MD albuterol sulfate 2.5 mg inhalation PRN alirocumab (Praluent Pen) 75 mg subcut Q2W 90 days amlodipine 10 mg PO DAILY aspirin (Adult Low Dose Aspirin) 81 mg PO DAILY candesartan 32 mg PO DAILY cetirizine 10 mg PO DAILY cholecalciferol (vitamin D3) 50 mcg PO DAILY clonidine HCl 0.3 mg PO BID epinephrine IM lorazepam 1 mg PO DAILY PRN omeprazole 20 mg PO DAILY sertraline 150 mg PO DAILY timolol maleate 0.5% 1 drp ophthalmic (eye) DAILY travoprost 0.004% 0 drps ophthalmic (eye) HPI HPI Comments History of Present Illness Details Cory returns for follow up regarding coronary artery disease. He has multiple cardiovascular risk factors including diet-controlled diabetes, hyperte nsion, dyslipidemia. He has a history of anaphylaxis to different drugs at different times in the past. He has smoked in the past but not recently. Due to his shortness of breath, he underwent a lung CT scan. That showed evidence of coronary artery calcification as well as mild tortuosity in the ascending aorta. Recent blood pressures have been running high but patient states nothing has changed in his life otherwise. He feels okay. No specific complaints. [facility] Medical History 1st degree AV block Atherosclerotic cardiovascular disease Chronic kidney disease, unspecified Chronic obstructive pulmonary disease, unspecified Essential (primary) hypertension History of anaphylaxis Obstructive sleep apnea (adult) (pediatric) Statin intolerance Type 2 diabetes mellitus without complications Surgical History History of cataract surgery History of tonsillectomy History of total knee replacement Family History Father No problems noted. Mother No problems noted. Social History Patient Tobacco Use Status: Former Tobacco user Tobacco use type: Cigarette Cigarettes Per Day: 20 Years Smoked: 20 e-Cigarette/Vaping Use: Never Used Substance Use Type: Marijuana Review of Systems Const Denies weakness ENT Denies dizziness Card Denies chest pain, Denies chest pain with activity, Denies syncope, Denies rapid heart rate, Denies pedal edema, Denies edema, Denies leg edema, Denies lightheadedness, Denies palpitations, Denies dyspnea, Denies dyspnea on exertion and Denies orthopnea Resp Denies cough, Denies dyspnea and Denies dyspnea on exertion GI Denies hematochezia and Denies change in stool character Musc Denies abnormal gait, Denies muscle cramps, Denies muscle weakness, Denies numbness, Denies radiating pain into limb and Denies tingling Neuro Denies abnormal gait, Denies dizziness, Denies syncope, Denies numbness, Denies tingling and Denies weakness Endo Denies palpitations Physical Exam Vital Signs: Last Vital Signs Pulse 53 03/21/23 10:13 BP 176/76 H 03/21/23 10:13 BMI result Body Mass Index 28.3 Const General: comfortable and no acute distress Orientation/consciousness: patient oriented x3 HEENT Other: Unremarkable Head: Yes normal to inspection Neck Neck: Yes normal visual inspection Chest Chest palpation & inspection: normal inspection of the chest Resp Auscultation: clear to auscultation bilaterally Cardio Palpation: normal PMI Heart sounds: S1 normal heart sound present, S2 normal heart sound present, no gallops, no murmurs and no rubs GI Palpation (GI): Soft to palpation Back/Spine/Pelvis Other: unremarkable Skin General skin exam: no rashes or lesions noted Neuro General: patient oriented x3 Extrem General: Yes normal to inspection Psych Mental Status: mental status grossly normal Assessment & Plan Assessment & Plan (1) Atherosclerotic cardiovascular disease: Code(s): I25.10 - Atherosclerotic heart disease of [place] coronary artery without angina pectoris (2) Statin intolerance: Code(s): Z78.9 - Other specified health status (3) 1st degree AV block: Code(s): I44.0 - Atrioventricular block, first degree (4) Obstructive sleep apnea (adult) (pediatric): Comment: Mild, positional, being treated with position therapy,and patient is very compliant. Patient has no active symptoms at this time. Code(s): G47.33 - Obstructive sleep apnea (adult) (pediatric) (5) Essential (primary) hypertension: Code(s): I10 - Essential (primary) hypertension Plan Cardiac studies reviewed. Echocardiogram with LVEF 60-65%, no obvious valvular pathology . CT chest shows [id number] coronary artery calcification. Myocardial perfusion imaging study shows likely normal perfusion. Overall, stable CAD. Continue baby aspirin. He has intolerance to statins and Zetia. Continue Praluent. LDL well controlled. With regard to blood pressure, seems quite high. Uncertain why it is going up. Currently on amlodipine, candesartan. Also on clonidine but he already has prolonged OH and hence not a good option. Any case, pressures quite high and hence would not stop it right now. We can start spironolactone and see if that helps. Advised him to do home blood pressures regularly and call us back in a few days. Other option would be to add hydralazine. Choe do beta-blockers due to long OH interval. With regard to NATHANIEL, positional therapy per Pulmonary note. Follow-up in 3 months to reassess blood pressure and manage accordingly. He will contact us with his home readings. Orders: Orders Basic Metabolic Panel Today I10 - Essential (primary) hypertension Medications: New spironolactone 25 mg PO DAILY 30 tabs 5RF Coding Level of Care Code Est Pt Level 4 (43129) Diagnoses Atherosclerotic cardiovascular disease I25.10 Statin intolerance Z78.9 1st degree AV block I44.0 Obstructive sleep apnea (adult) (pediatric) G47.33 Essential (primary) hypertension I10
[2023-03-21 10:13] VITALS: BP 176/76; PULSE 53; BMI 28.3
== END 2023-03-21 10:29 | disposition home or self-care (01) ==
PROVIDERS: Visit Provider Internal Medicine
DX: I25.10 Atherosclerotic heart disease of native coronary artery without angina pectoris (principal); Z78.9 Other specified health status; I44.0 Atrioventricular block, first degree; G47.33 Obstructive sleep apnea (adult) (pediatric); I10 Essential (primary) hypertension
CPT/HCPCS: 99214

== ENCOUNTER → 2023-03-21 10:10 | Outpatient (BNVA) | payer OTHER, SELFPAY | PROVIDERS: Visit Provider Internal Medicine | DX: I25.10 Atherosclerotic heart disease of native coronary artery without angina pectoris (principal); I44.0 Atrioventricular block, first degree; I10 Essential (primary) hypertension; G47.33 Obstructive sleep apnea (adult) (pediatric); Z79.82 Long term (current) use of aspirin; Z79.899 Other long term (current) drug therapy | CPT/HCPCS: 99212 ==

== ENCOUNTER 2023-07-01 08:14 | Outpatient (AMB) | payer OTHER, SELFPAY ==
--- NOTE | 2023-07-01 08:36 | MHC.OFFVIS ---
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 Accompanied by: Self / Same As Patient Allergies amoxicillin [AMOXICILLIN] Allergy (Severe, Verified 07/01/23 08:40) Angioedema cephalexin [From KEFLEX] Allergy (Severe, Verified 07/01/23 08:40) Testicle swelling, Angioedema ezetimibe [Zetia] Allergy (Severe, Verified 07/01/23 08:40) Anaphylaxis hydrochlorothiazide Allergy (Severe, Verified 07/01/23 08:40) dehydrate Bmlcjfv-ELU-GzG Reductase Inhibitor [YAEVCVZ-THJ-VRF REDUCTASE INHIBITOR] Allergy (Severe, Verified 07/01/23 08:40) Anaphylaxis diphenhydramine [From BENADRYL] Adverse Reaction (Unknown, Verified 07/01/23 08:40) Muscle spasms/twitching spironolactone Adverse Reaction (Verified 07/01/23 08:40) Vomiting Medication List - Last Reconciled 07/01/23 by Donald Scott MD albuterol sulfate 2.5 mg inhalation PRN alirocumab (Praluent Pen) 75 mg subcut Q2W 90 days amlodipine 10 mg PO DAILY aspirin (Adult Low Dose Aspirin) 81 mg PO DAILY candesartan 32 mg PO DAILY cetirizine 10 mg PO DAILY cholecalciferol (vitamin D3) 50 mcg PO DAILY clonidine HCl 0.3 mg PO BID epinephrine IM hydralazine 25 mg PO TID 30 days lorazepam 1 mg PO DAILY PRN omeprazole 20 mg PO DAILY sertraline 150 mg PO DAILY timolol maleate 0.5% 1 drp ophthalmic (eye) DAILY travoprost 0.004% 0 drps ophthalmic (eye) HPI HPI Comments History of Present Illness Details Cory returns for follow up regarding coronary artery disease. He has multiple cardiovascular risk factors including diet-controlled diabetes, hypertension, dyslipidemia. He has a history of anaphylaxis to different drugs at different times in the past. He has smoked in the past but not recently. Due to his shortness of breath, he underwent a lung CT scan. That showed evidence of coronary artery calcification as well as mild tortuosity in the ascending aorta. Overall, he is feeling good. No specific cardiac complaints. In the past, blood pressures are running high. More recently, they seem improved. [facility] Medical History 1st degree AV block Atherosclerotic cardiovascular disease Chronic kidney disease, unspecified Chronic obstructive pulmonary disease, unspecified Essential (primary) hypertension History of anaphylaxis Obstructive sleep apnea (adult) (pediatric) Statin intolerance Type 2 diabetes mellitus without complications Surgical History History of total knee replacement History of tonsillectomy History of cataract surgery Family History Father No problems noted. Mother No problems noted. Social History (Updated 07/01/23 @ 08:41 by Stefani Bal) Patient Tobacco Use Status: Former Tobacco user Years Smoked: 20 e-Cigarette/Vaping Use: Never Used Substance Use Type: Marijuana Review of Systems Const Denies weakness ENT Denies dizziness Card Denies chest pain, Denies chest pain with activity, Denies syncope, Denies rapid heart rate, Denies pedal edema, Denies edema, Denies leg edema, Denies lightheadedness, Denies palpitations, Denies dyspnea, Denies dyspnea on exertion and Denies orthopnea Resp Denies cough, Denies dyspnea and Denies dyspnea on exertion GI Denies hematochezia and Denies change in stool character Musc Denies abnormal gait, Denies muscle cramps, Denies muscle weakness, Denies numbness, Denies radiating pain into limb and Denies tingling Neuro Denies abnormal gait, Denies dizziness, Denies syncope, Denies numbness, Denies tingling and Denies weakness Endo Denies palpitations Physical Exam Vital Signs: Last Vital Signs Pulse 66 07/01/23 08:37 BP 128/68 07/01/23 08:37 BMI result Body Mass Index 29.3 Const General: comfortable and no acute distress Orientation/consciousness: patient oriented x3 HEENT Other: Unremarkable Head: Yes normal to inspection Neck Neck: Yes normal visual inspection Chest Chest palpation & inspection: normal inspection of the chest Resp Auscultation: clear to auscultation bilaterally Cardio Palpation: normal PMI Heart sounds: S1 normal heart sound present, S2 normal heart sound present, no gallops, no murmurs and no rubs GI Palpation (GI): Soft to palpation Back/Spine/Pelvis Other: unremarkable Skin General skin exam: no rashes or lesions noted Neuro General: patient oriented x3 Extrem General: Yes normal to inspection Psych Mental Status: mental status grossly normal Assessment & Plan Assessment & Plan (1) Atherosclerotic cardiovascular disease: Code(s): I25.10 - Atherosclerotic heart disease of [place] coronary artery without angina pectoris (2) Statin intolerance: Code(s): Z78.9 - Other specified health status (3) 1st degree AV block: Code(s): I44.0 - Atrioventricular block, first degree (4) Obstructive sleep apnea (adult) (pediatric): Comment: Mild, positional, being treated with position therapy,and patient is very compliant. Patient has no active symptoms at this time. Code(s): G47.33 - Obstructive sleep apnea (adult) (pediatric) (5) Essential (primary) hypertension: Code(s): I10 - Essential (primary) hypertension Plan Cardiac studies reviewed. Echocardiogram with LVEF 60-65%, no obvious valvular pathology . CT chest shows vutu-up-noiuhdiq coronary artery calcification. Myocardial perfusion imaging study shows likely normal perfusion. EKG shows sinus rhythm with prolonged RI at 346 milliseconds. Overall, stable coronary disease, first-degree heart block, hypertension, dyslipidemia, statin intolerance. Continue low-dose aspirin. Continue candesartan/amlodipine/hydralazine. Continue Praluent. The first-degree heart block will need to be monitored on EKGs. Will avoid any rate slowing agent. He is also on clonidine that may need to be stopped in the future. He does have blood pressure issues and hence we have to balance the risk. With regard to NATHANIEL, positional therapy per Pulmonary note. Follow-up in 6 months with EKG. Coding Level of Care Code Est Pt Level 4 (55814) Diagnoses Atherosclerotic cardiovascular disease I25.10 Statin intolerance Z78.9 1st degree AV block I44.0 Obstructive sleep apnea (adult) (pediatric) G47.33 Essential (primary) hypertension I10
[2023-07-01 08:37] VITALS: BP 128/68; PULSE 66; BMI 29.3
== END 2023-07-01 09:16 | disposition home or self-care (01) ==
PROVIDERS: PCP Family Medicine; Visit Provider Internal Medicine
DX: I25.10 Atherosclerotic heart disease of native coronary artery without angina pectoris (principal); Z78.9 Other specified health status; I44.0 Atrioventricular block, first degree; G47.33 Obstructive sleep apnea (adult) (pediatric); I10 Essential (primary) hypertension
CPT/HCPCS: 99214

== ENCOUNTER → 2023-07-01 08:14 | Outpatient (BNVA) | payer OTHER, SELFPAY | PROVIDERS: PCP Family Medicine; Visit Provider Internal Medicine | DX: I25.10 Atherosclerotic heart disease of native coronary artery without angina pectoris (principal); I44.0 Atrioventricular block, first degree; I10 Essential (primary) hypertension; G47.33 Obstructive sleep apnea (adult) (pediatric); Z78.9 Other specified health status | CPT/HCPCS: 99212 ==

== ENCOUNTER 2023-10-02 10:03 | Outpatient (REF) | payer OTHER, SELFPAY ==
[2023-10-02 12:07] LABS: Hematocrit 38.3 % (42.0-52.0); Mean Corpuscular HGB Conc 33.9 g/dl (31.0-36.0); Mean Corpuscular Hemoglobin 29.9 pg (27.0-33.0); Mean Platelet Volume 9.9 fL (9.4-12.4); Platelet Count 177 X10*3/uL (160-400); Red Blood Count 4.35 X10*6/uL (4.60-5.80); Red Cell Distribution Width 12.9 % (11.0-16.0); White Blood Count 7.3 X10*3/uL (4.8-10.8)
[2023-10-02 12:32] LABS: Alanine Aminotransferase 19 U/L (0-40); Albumin Level 4.2 g/dL (3.5-5.0); Alkaline Phosphatase 60 U/L (39-117); Anion Gap 13 (12-20); Aspartate Amino Transferase 20 U/L (5-37); Bilirubin Direct 0.2 mg/dL (0.0-0.5); Bilirubin Total 0.3 mg/dL (0.0-1.0); Blood Urea Nitrogen 26 mg/dL (9-16); Carbon Dioxide 26 mmol/L (22-29); Chloride 107 mmol/L (96-108); Cholesterol 148 mg/dL (<200); Estimated Glomerular Filt Rate 53; Glucose Random 123 mg/dL (60-115); HDL Cholesterol 49 mg/dL (>40); Iron 51 mcg/dL (45-160); LDL Cholesterol Calculated 73 mg/dL (<100); Percent Iron Saturation 13 % (15-50); Sodium 141 mmol/L (135-145); Total Iron Binding Capacity 378 mcg/dL (228-428); Total Protein 7.6 g/dL (6.5-8.0); Triglycerides 134 mg/dL (<150); Unsaturated Iron Binding 327 ug/dL
[2023-10-02 12:34] LABS: Estimated Average Glucose 120 mg/dL; Hemoglobin A1c % 5.8 % (<6.0)
[2023-10-02 12:38] LABS: Ferritin 17 ng/mL (20-250); Free T4 (Free Thyroxine) 0.95 ng/dL (0.71-1.85); Thyroid Stimulating Hormone 1.66 uIU/mL (0.32-4.0); Vitamin D 25-OH Total 50.8 ng/mL (>30)
[2023-10-02 12:48] LABS: Microalbum/Creatinine Ratio Ur 97.6 ug/mg cr (<30)
[2023-10-02 12:50] LABS: Folate 18.4 ng/mL (> or = 4.0); Vitamin B12 583 pg/mL (200-900)
== END 2023-10-02 10:04 | disposition home or self-care (01) ==
LOC: HO.HHCL 10:03
PROVIDERS: Visit Provider Family Medicine
DX: Z00.00 Encounter for general adult medical examination without abnormal findings (principal); E11.22 Type 2 diabetes mellitus with diabetic chronic kidney disease; I12.9 Hypertensive chronic kidney disease with stage 1 through stage 4 chronic kidney disease, or unspecified chronic kidney disease; N18.30 Chronic kidney disease, stage 3 unspecified; E78.5 Hyperlipidemia, unspecified; N28.1 Cyst of kidney, acquired; I25.10 Atherosclerotic heart disease of native coronary artery without angina pectoris; F33.9 Major depressive disorder, recurrent, unspecified; G43.909 Migraine, unspecified, not intractable, without status migrainosus; J30.9 Allergic rhinitis, unspecified; J45.30 Mild persistent asthma, uncomplicated; M25.562 Pain in left knee; G89.29 Other chronic pain
CPT/HCPCS: 36415; 80048; 80061; 80076; 82043; 82306; 82570; 82607; 82728; 82746; 83036; 83540; 84439; 84443; 85027

== ENCOUNTER 2023-10-23 10:01 | Outpatient (REF) | payer OTHER, SELFPAY ==
--- NOTE | ~2023-10-23 | US_ITS ---
EXAMINATION: US RETROPERITONEAL LIMITED (RENAL ONLY) CLINICAL INFORMATION: Multiple renal cysts for follow-up evaluation. COMPARISON: Renal ultrasound TECHNIQUE: Renal ultrasound 03/02/2021. CT abdomen and pelvis 05/28/2019. Ultrasound abdomen complete 02/27/2019. FINDINGS: RIGHT KIDNEY: 11.5 x 5.7 x 4.6 cm (SAG x AP x TRV). The kidney is normal in size, contour, and echogenicity. Renal cortical thickness is normal. No renal calculi or hydronephrosis. Multiple simple cysts are seen, the largest at the upper pole measuring 3.2 cm. These require no imaging follow-up. At the interpolar aspect, a 2.4 x 2.1 x 2.6 cm mildly complex cyst is seen with fine septation. This has a likely benign, Bosniak 2 appearance, consistent with the CT examination of 05/28/2019 (3:352 and 5:55), and no imaging follow-up is recommended. LEFT KIDNEY: 11.2 x 5.3 x 4.7 cm (SAG x AP x TRV). The kidney is normal in size, contour, and echogenicity. Renal cortical thickness is normal. No renal calculi or hydronephrosis. Multiple simple cysts are seen, the largest at the upper pole measuring 3.7 cm. These require no imaging follow-up. ADDITIONAL FINDINGS: Hyperechoic benign probable hemangiomas are seen, the largest measuring 9 mm. US/US renal BI IMPRESSION: 1. There are benign, simple and likely benign, mildly complex bilateral renal cysts, as detailed. No further imaging follow-up is recommended. 2. 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
== END 2023-10-23 10:02 | disposition home or self-care (01) ==
LOC: HO.US 10:01
PROVIDERS: PCP Family Medicine; Visit Provider Family Medicine
DX: N28.1 Cyst of kidney, acquired (principal)
CPT/HCPCS: 76775

== ENCOUNTER 2023-12-09 09:23 | Outpatient (AMB) | payer OTHER, SELFPAY ==
[2023-12-09 09:33] VITALS: BP 110/78; PULSE 61; O2SAT 98; BMI 28.6
--- NOTE | 2023-12-09 09:33 | MHC.OFFVIS ---
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 Allergies amoxicillin [AMOXICILLIN] Allergy (Severe, Verified 12/09/23 09:43) Angioedema cephalexin [From KEFLEX] Allergy (Severe, Verified 12/09/23 09:43) Testicle swelling, Angioedema ezetimibe [Zetia] Allergy (Severe, Verified 12/09/23 09:43) Anaphylaxis hydrochlorothiazide Allergy (Severe, Verified 12/09/23 09:43) dehydrate Nsbrfnq-FGM-BgG Reductase Inhibitor [KZPKSRT-YSS-YAJ REDUCTASE INHIBITOR] Allergy (Severe, Verified 12/09/23 09:43) Anaphylaxis diphenhydramine [From BENADRYL] Adverse Reaction (Unknown, Verified 12/09/23 09:43) Muscle spasms/twitching spironolactone Adverse Reaction (Verified 12/09/23 09:43) Vomiting Medication List - Last Reconciled 12/09/23 by Romero Castro MD albuterol sulfate 2.5 mg inhalation PRN alirocumab (Praluent Pen) 75 mg subcut Q2W 90 days amlodipine 10 mg PO DAILY aspirin (Adult Low Dose Aspirin) 81 mg PO DAILY candesartan 32 mg PO DAILY cholecalciferol (vitamin D3) 50 mcg PO DAILY clonidine HCl 0.3 mg PO BID epinephrine IM fexofenadine 180 mg PO DAILY hydralazine 25 mg PO TID 90 days lorazepam 1 mg PO DAILY PRN omeprazole 20 mg PO DAILY sertraline 150 mg PO DAILY timolol maleate 0.5% 1 drp ophthalmic (eye) DAILY travoprost 0.004% 0 drps ophthalmic (eye) Do you need a note to return to daycare/school/sports/work: No HPI Obstructive sleep apnea HPI Details This 78 years old very pleasant gentleman is here for yearly follow-up for his sleep apnea and mild COPD. A mild case of obstructive sleep apnea is being treated with position therapy, and also he tries to lose some weight. He has no problem in sleeping and sleeps almost 6-7 hours every night without interruptions. Weight remains somewhat stable, has not been able to lose much weight. Breathing has been okay and he has used albuterol inhaler only a few times during the year. Luckily he has had no acute infection or exacerbation. [facility] Medical History History of anaphylaxis Statin intolerance Obstructive sleep apnea (adult) (pediatric) Chronic obstructive pulmonary disease, unspecified Chronic kidney disease, unspecified Essential (primary) hypertension Type 2 diabetes mellitus without complications 1st degree AV block Atherosclerotic cardiovascular disease Surgical History History of total knee replacement History of tonsillectomy History of cataract surgery Family History Father No problems noted. Mother No problems noted. Social History Patient Tobacco Use Status: Former Tobacco user Years Smoked: 20 e-Cigarette/Vaping Use: Never Used Substance Use Type: Marijuana Review of Systems Const All systems reviewed & are unremarkable except as noted in HPI and below Eyes Reports no additional complaints ENT Reports no additional complaints Card Denies chest pain, Denies irregular heart rhythm, Denies leg edema, Reports dyspnea on exertion (Very mild) and Reports other (Heart murmur) Resp Reports as per HPI, Denies cough, Reports dyspnea on exertion (Very mild) and Denies wheezing GI Reports no additional complaints Reports no additional complaints Musc Reports arthralgias (Both knees) Skin/Breast Reports system reviewed and no additional complaints, except as documented Neuro Reports no additional complaints Psych Reports depression (Treated with sertraline) Aller/Immun Denies wheezing Physical Exam Vital Signs: Last Vital Signs Pulse 61 12/09/23 09:33 BP 110/78 12/09/23 09:33 Pulse Ox 98 12/09/23 09:33 Oxygen Delivery Method Room Air 12/09/23 09:33 BMI result Body Mass Index 28.6 Const General: healthy appearing, comfortable, no acute distress, alert and awake Orientation/consciousness: patient oriented x3 HEENT Head: Yes normal to inspection General nose exam: No nasal polyps present and No nasal discharge present Face and sinus: Yes sinuses nontender Mouth: oropharynx normal Throat: Yes posterior oropharynx normal Eyes General: appearance normal, both eyes and all related structures Neck Neck: Yes normal visual inspection, Yes no lymphadenopathy, Yes trachea midline and Yes no JVD Thyroid: Thyroid normal Chest Chest palpation & inspection: normal inspection of the chest, normal palpation of entire chest wall and no tenderness Resp Other: Percussion note resonant, breath sounds are equal on both sides slightly distant, No wheezes rhonchi or crepitations are heard. Cardio Palpation: normal PMI Rate: regular rate Rhythm: regular rhythm Heart sounds: no gallops and Murmur heart sound present (A faint systolic murmur at left sternal border) GI Palpation (GI): Soft to palpation, nontender, No hepatosplenomegaly present and no masses Auscultation: normal bowel sounds Back/Spine/Pelvis Thoracic/Lumbar Spine: thoracic and lumbar spine normal to inspection Skin General skin exam: no rashes or lesions noted Neuro General: patient oriented x3 and no focal motor deficits Cranial nerves: Yes CN's II-XII intact bilaterally Extrem General: Yes normal to inspection, No no joint enlargement (Osteoarthritis of both knees, right knee status post replacement), Yes no clubbing, cyanosis or edema and Yes no calf tenderness Psych Appearance: grossly normal and well kempt Speech and movement: Normal speech and movement present Assessment & Plan Assessment & Plan (1) Obstructive sleep apnea (adult) (pediatric): Comment: Mild, positional, being treated with position therapy,and patient is very compliant. Patient has no active symptoms at this time. Code(s): G47.33 - Obstructive sleep apnea (adult) (pediatric) Plan: Commended for following the instructions and sleeping in lateral position all the times. (2) Chronic obstructive pulmonary disease, unspecified: Comment: Patient gave history of COPD for many years which has remained relatively stable. PULMONARY FUNCTION TEST WAS BASICALLY NORMAL EXCEPT FOR SLIGHT DECREASE IN DIFFUSION CAPACITY. SO COPD IF AT ALL IS VERY MILD. Code(s): J44.9 - Chronic obstructive pulmonary disease, unspecified Qualifiers: COPD type: unspecified COPD Qualified Code(s): J44.9 - Chronic obstructive pulmonary disease, unspecified Plan: TX: CONTINUE TO USE ALBUTEROL HFA 2 PUFFS Q 4-6 HOURS P.R.N. IN CASE HE HAS ANY SUSTAINED BOUTS OF COUGH OR WHEEZING. WILL BE RECHECKED ONCE A YEAR AND NEEDED . I ACTUALLY TALKED TO HIM THAT HE DOES NOT HAVE TO COME FOR FOLLOW-UP TO SEE ME, LONG HE CONTINUES HIS REGULAR FOLLOW-UPS WITH HIS PRIMARY CARE PROVIDER. BUT HE HIMSELF INSISTED THAT HE WOULD LIKE TO COME ONCE A YEAR, FOR FOLLOW-UP. Coding Level of Care Code Est Pt Level 3 (41821) Diagnoses Obstructive sleep apnea (adult) (pediatric) G47.33 Chronic obstructive pulmonary disease, unspecified COPD type J44.9 COPD type: unspecified COPD
== END 2023-12-09 09:51 | disposition home or self-care (01) ==
PROVIDERS: PCP Family Medicine; Visit Provider Internal Medicine
DX: G47.33 Obstructive sleep apnea (adult) (pediatric) (principal); J44.9 Chronic obstructive pulmonary disease, unspecified
CPT/HCPCS: 99213

== ENCOUNTER → 2023-12-09 09:23 | Outpatient (BNVA) | payer OTHER, SELFPAY | PROVIDERS: PCP Family Medicine; Visit Provider Internal Medicine | DX: G47.33 Obstructive sleep apnea (adult) (pediatric) (principal); J44.9 Chronic obstructive pulmonary disease, unspecified | CPT/HCPCS: 99212 ==

== ENCOUNTER 2024-06-08 08:14 | Outpatient (AMB) | payer OTHER, SELFPAY ==
[2024-06-08 08:19] VITALS: BP 220/90; PULSE 58; BMI 29.2
--- NOTE | 2024-06-08 08:19 | A.OFFVIS_ITS ---
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 Accompanied by: Self / Same As Patient Allergies amoxicillin [AMOXICILLIN] Allergy (Severe, Verified 12/09/23 09:43) Angioedema cephalexin [From KEFLEX] Allergy (Severe, Verified 12/09/23 09:43) Testicle swelling, Angioedema ezetimibe [Zetia] Allergy (Severe, Verified 12/09/23 09:43) Anaphylaxis hydrochlorothiazide Allergy (Severe, Verified 12/09/23 09:43) dehydrate Ettilgi-KQO-VeI Reductase Inhibitor [VSHBTJD-XKN-DFC REDUCTASE INHIBITOR] Allergy (Severe, Verified 12/09/23 09:43) Anaphylaxis diphenhydramine [From BENADRYL] Adverse Reaction (Unknown, Verified 12/09/23 09:43) Muscle spasms/twitching spironolactone Adverse Reaction (Verified 12/09/23 09:43) Vomiting Medication List - Last Reconciled 06/08/24 by Donald Scott MD albuterol sulfate 2.5 mg inhalation PRN alirocumab (Praluent Pen) 75 mg subcut Q2W 90 days amlodipine 10 mg PO DAILY aspirin (Adult Low Dose Aspirin) 81 mg PO DAILY candesartan 32 mg PO DAILY cholecalciferol (vitamin D3) 50 mcg PO DAILY clonidine HCl 0.3 mg PO BID epinephrine IM fexofenadine 180 mg PO DAILY hydralazine 25 mg PO TID 90 days lorazepam 1 mg PO DAILY PRN omeprazole 20 mg PO DAILY sertraline 150 mg PO DAILY timolol maleate 0.5% 1 drp ophthalmic (eye) DAILY travoprost 0.004% 0 drps ophthalmic (eye) HPI Comments Details: Cory returns for follow up regarding coronary artery disease. He has multiple cardiovascular risk factors including diet-controlled diabetes, hypertension, dyslipidemia. He has a history of anaphylaxis to different drugs at different times in the past. He has smoked in the past but not recently. Due to his shortness of breath, he underwent a lung CT scan. That showed evidence of coronary artery calcification as well as mild tortuosity in the ascending aorta. Since last seen, he states he is feeling fine. He does not have any cardiac symptoms. No angina. Today's blood pressure is quite high but he states when he checked it at home as today it was completely normal. Otherwise, he has had high blood pressures as well as normal blood pressures at different times in the past. Somewhat labile. Today he denies any chest pain. With regard to blood pressure, I checked myself again and it was still high. [facility] Medical History History of anaphylaxis Statin intolerance Obstructive sleep apnea (adult) (pediatric) Chronic obstructive pulmonary disease, unspecified Chronic kidney disease, unspecified Essential (primary) hypertension Type 2 diabetes mellitus without complications 1st degree AV block Atherosclerotic cardiovascular disease Surgical History History of total knee replacement History of tonsillectomy History of cataract surgery Family History Father No problems noted. Mother No problems noted. Social History (Updated 06/08/24 @ 08:24 by Virginie Thomas CMA) Alcohol intake: former Patient Tobacco Use Status: Former Tobacco user Years Smoked: 20 e-Cigarette/Vaping Use: Never Used Substance Use Type: Marijuana Review of Systems Const Denies chills, Denies fatigue, Denies fever(s), Denies weight gain and Denies weight loss ENT Denies dizziness Card Denies chest pain, Denies leg edema, Denies lightheadedness, Denies palpitations, Denies dyspnea on exertion, Denies orthopnea and Denies other Resp Denies cough and Denies dyspnea on exertion GI Denies hematochezia and Denies change in stool character Musc Denies abnormal gait, Denies muscle weakness, Denies numbness, Denies radiating pain into limb and Denies tingling Neuro Denies abnormal gait, Denies dizziness, Denies numbness and Denies tingling Endo Denies fatigue and Denies palpitations Physical Exam Vital Signs: Last Vital Signs Pulse 58 06/08/24 08:19 BP 220/90 H 06/08/24 08:19 BMI result Body Mass Index 29.2 Const General: comfortable and no acute distress Orientation/consciousness: patient oriented x3 HEENT Other: Unremarkable Head: Yes normal to inspection Neck Neck: Yes normal visual inspection Chest Chest palpation & inspection: normal inspection of the chest Resp Auscultation: clear to auscultation bilaterally Cardio Palpation: normal PMI Heart sounds: S1 normal heart sound present, S2 normal heart sound present, no gallops, no murmurs and no rubs GI Palpation (GI): Soft to palpation Back/Spine/Pelvis Other: unremarkable Skin General skin exam: no rashes or lesions noted Neuro General: patient oriented x3 Extrem General: Yes normal to inspection Psych Mental Status: mental status grossly normal Office Procedures EKG Details: EKG with underlying sinus bradycardia at 58/Min; TX prolongation to 370 millisecond; minimal criteria for LVH; nonspecific ST-T changes. [id number], Complete Assessment & Plan Assessment & Plan (1) Atherosclerotic cardiovascular disease: Code(s): I25.10 - Atherosclerotic heart disease of [place] coronary artery without angina pectoris Category: Medical (2) Essential (primary) hypertension: Code(s): I10 - Essential (primary) hypertension Category: Medical (3) Statin intolerance: Code(s): Z78.9 - Other specified health status Category: Medical (4) 1st degree AV block: Code(s): I44.0 - Atrioventricular block, first degree Category: Medical (5) Obstructive sleep apnea (adult) (pediatric): Comment: Mild, positional, being treated with position therapy,and patient is very compliant. Patient has no active symptoms at this time. Code(s): G47.33 - Obstructive sleep apnea (adult) (pediatric) Category: Medical Plan Cardiac studies reviewed. Echocardiogram from 2020 with LVEF 60-65%, no obvious valvular pathology . CT chest 2019 shows ofbb-[id number] coronary artery calcification. Myocardial perfusion imaging 2019 study shows likely normal perfusion. EKG shows sinus rhythm with prolonged TX. Overall, stable coronary disease, first-degree heart block, hypertension, dyslipidemia, statin intolerance. With regard to blood pressure, seems quite high. He however states it was com pletely normal when he checked at home. Hence not clear if it is just labile pressures. In prior readings, he has had high and low levels. There is mention of allergy to hydrochlorothiazide. He has several other allergies. Hence we will go up on hydralazine dosing. Continue candesartan/amlodipine. He will let us know later today what the blood pressures. He is on EpiPen and hence we will not be able to use beta-blockers. With regard to lipids, on Praluent. On low-dose aspirin. The first-degree heart block will need to be followed up on EKGs. Avoid any rate slowing agents. Clonidine may worsen this but his blood pressure is already poorly controlled and hence stopping it will make it likely even higher. With regard to NATHANIEL, positional therapy per Pulmonary. Once he gets home, he will do some blood pressures in a few hours and let us know. He will take additional hydralazine before that. Check labs, echocardiogram, renal Doppler. Orders: Orders US renal doppler Today I70.1 - Atherosclerosis of renal artery CA echo transthoracic complete Today I25.10 - Atherosclerotic heart disease of [place] coronary artery without angina pectoris Basic Metabolic Panel Today I50.9 - Heart failure, unspecified Medications: New hydralazine 50 mg PO TID 270 tabs 3RF 90 days Discontinued hydralazine Discontinued Reason: Doctor's Order 25 mg PO TID 90 days 270 tabs 3RF Coding Level of Care Code Est Pt Level 4 (65157) Diagnoses Atherosclerotic cardiovascular disease I25.10 Essential (primary) hypertension I10 Statin intolerance Z78.9 1st degree AV block I44.0 Obstructive sleep apnea (adult) (pediatric) G47.33 CPT Codes EKG - CPT: 91406-[id number], Complete ([id number])
== END 2024-06-08 08:50 | disposition home or self-care (01) ==
PROVIDERS: PCP Family Medicine; Visit Provider Internal Medicine
DX: I25.10 Atherosclerotic heart disease of native coronary artery without angina pectoris (principal); I10 Essential (primary) hypertension; Z78.9 Other specified health status; I44.0 Atrioventricular block, first degree; G47.33 Obstructive sleep apnea (adult) (pediatric)
CPT/HCPCS: 93010; 99214

== ENCOUNTER 2024-06-08 08:14 | Outpatient (REF) | payer OTHER, SELFPAY ==
[2024-06-08 10:07] LABS: Anion Gap 12 (12-20); Blood Urea Nitrogen 26 mg/dL (9-16); Calcium 10.2 mg/dL (8.4-10.2); Carbon Dioxide 27 mmol/L (22-29); Chloride 104 mmol/L (96-108); Estimated Glomerular Filt Rate 52; Glucose Random 134 mg/dL (60-115); Potassium 4.4 mmol/L (3.3-5.1); Sodium 139 mmol/L (135-145)
== END 2024-06-08 08:15 | disposition home or self-care (01) ==
LOC: HO.LAB 08:14
PROVIDERS: PCP Family Medicine; Visit Provider Internal Medicine
DX: I50.9 Heart failure, unspecified (principal); I25.10 Atherosclerotic heart disease of native coronary artery without angina pectoris; Z78.9 Other specified health status; I44.0 Atrioventricular block, first degree; G47.33 Obstructive sleep apnea (adult) (pediatric); Z79.899 Other long term (current) drug therapy; I70.1 Atherosclerosis of renal artery; I11.0 Hypertensive heart disease with heart failure
CPT/HCPCS: 36415; 80048; 93005; 99212

== ENCOUNTER 2024-07-03 07:33 | Outpatient (REF) | payer OTHER, SELFPAY ==
--- NOTE | ~2024-07-03 | US_ITS ---
EXAMINATION: RENAL ARTERY DOPPLER ULTRASOUND CLINICAL INFORMATION: Renal artery stenosis COMPARISON: Renal ultrasound from 10/23/2023 TECHNIQUE: Renal ultrasound. Doppler ultrasound (spectral analysis and color Doppler) of the renal arteries and aorta were performed. FINDINGS: The right kidney measures 11.0 x 6.1 x 5.2 cm in sagittal, AP and transverse dimensions. The left kidney measures 11.5 x 5.6 x 5.4 cm in sagittal, AP and transverse dimensions. The kidneys show no calculi or hydronephrosis. The corticomedullary differentiation is normal. Multiple bilateral renal cysts are again seen which are unchanged compared to the prior ultrasound. Largest cyst on the right measures 2.8 x 2.8 x 2.8 cm in the upper pole. Largest cyst on the left measures 3.7 x 3.7 x 3.6 cm in the upper pole RENAL ARTERY VELOCITIES: Right: Proximally: 118 cm/s. Mid: 84 cm/s. Distal: 150 cm/s. Left: Proximally: 106 cm/s. Mid: 87 cm/s. Distally: 131 cm/s. SEGMENTAL RESISTIVE INDICES: Right: Upper: 0.8 Mid: 0.70 Lower: 0.82 Left: Upper: 0.73 Mid: 0.71 Lower: 0.78 Mid aortic velocity: 66 cm/s. Renal Aortic Ratio: Right: 2.27 Left: 1.98 US/US renal doppler IMPRESSION: 1. Bilateral renal cysts. Stable 2. No evidence of renal artery stenosis. Criteria: NORMAL: Renal artery peak systolic velocities < 180 cm/s. Renal aortic ratio < 3.5 Normal renal size. < 60% STENOSIS: Renal artery peak systolic velocities > 180 cm/s. Renal aortic ratio < 3.5 Renal size <2 cm difference between sides. > 60% STENOSIS Renal artery peak systolic velocities > 180 cm/s. Renal aortic ratio > 3.5 Renal size >2 cm difference between sides. Aortic PSV > 140 cm/s with normal renal artery PSV made over estimate severity. Aortic PSV > 100 cm/s with normal renal artery PSV may underestimate severity. Electronically signed by: Fazal Campos MD 07/15/2024 04:32 PM [facility] Workstation: [id number]
--- NOTE | ~2024-07-03 | US_ITS ---
EXAMINATION: RENAL ARTERY DOPPLER ULTRASOUND CLINICAL INFORMATION: Renal artery stenosis COMPARISON: Renal ultrasound from 10/23/2023 TECHNIQUE: Renal ultrasound. Doppler ultrasound (spectral analysis and color Doppler) of the renal arteries and aorta were performed. FINDINGS: The right kidney measures 11.0 x 6.1 x 5.2 cm in sagittal, AP and transverse dimensions. The left kidney measures 11.5 x 5.6 x 5.4 cm in sagittal, AP and transverse dimensions. The kidneys show no calculi or hydronephrosis. The corticomedullary differentiation is normal. Multiple bilateral renal cysts are again seen which are unchanged compared to the prior ultrasound. Largest cyst on the right measures 2.8 x 2.8 x 2.8 cm in the upper pole. Largest cyst on the left measures 3.7 x 3.7 x 3.6 cm in the upper pole RENAL ARTERY VELOCITIES: Right: Proximally: 118 cm/s. Mid: 84 cm/s. Distal: 150 cm/s. Left: Proximally: 106 cm/s. Mid: 87 cm/s. Distally: 131 cm/s. SEGMENTAL RESISTIVE INDICES: Right: Upper: 0.8 Mid: 0.70 Lower: 0.82 Left: Upper: 0.73 Mid: 0.71 Lower: 0.78 Mid aortic velocity: 66 cm/s. Renal Aortic Ratio: Right: 2.27 Left: 1.98 US/US renal BI IMPRESSION: 1. Bilateral renal cysts. Stable 2. No evidence of renal artery stenosis. Criteria: NORMAL: Renal artery peak systolic velocities < 180 cm/s. Renal aortic ratio < 3.5 Normal renal size. < 60% STENOSIS: Renal artery peak systolic velocities > 180 cm/s. Renal aortic ratio < 3.5 Renal size <2 cm difference between sides. > 60% STENOSIS Renal artery peak systolic velocities > 180 cm/s. Renal aortic ratio > 3.5 Renal size >2 cm difference between sides. Aortic PSV > 140 cm/s with normal renal artery PSV made over estimate severity. Aortic PSV > 100 cm/s with normal renal artery PSV may underestimate severity. Electronically signed by: Fazal Campos MD 07/15/2024 04:32 PM [facility]
== END 2024-07-03 07:34 | disposition home or self-care (01) ==
LOC: HO.US 07:33
PROVIDERS: PCP Family Medicine; Visit Provider Internal Medicine
DX: I70.1 Atherosclerosis of renal artery (principal)
CPT/HCPCS: 76775; 93975

== ENCOUNTER → 2024-07-08 07:47 | Outpatient (REF) | payer OTHER, SELFPAY ==
--- NOTE | 2024-07-08 07:50 | CA_ITS ---
Transthoracic Echocardiogram Patient (Last, First, Middle): Cory Ortiz J Gender: Male Date of : 1945 Age: 79 Procedure Date: 07/08/2024 Procedure Type: Transthoracic Echocardiogram Location: OP Height: 175.26 cm Weight: 83.92 kg BSA: 2.00 m2 Heart Rate: bpm BP: 180 / 80 mmHg Ms Sql Server Developer: TO Referring MD: Donald Scott MD Flame Burner: Marcio Bey MD Symptoms: I25.10 - Atherosclerotic heart disease of [place] coronary artery without... Study Quality: Adequate ECG Rhythm: Atrial flutter Conclusions: - 1. Normal LV ejection fraction of 65-70% with normal filling pattern 2. Mild mitral regurgitation 3. Normal RV systolic pressure 4. No gross pericardial effusion Findings Left Ventricle Normal left ventricular size, thickness, and systolic function. The visually estimated ejection fraction is between 65-70%. Spectral Doppler is indicative of a normal filling pattern. Peak GLS is -21.9%, within normal limits. Right Ventricle Normal right ventricular cavity size and systolic function. Atria The left atrium is likely dilated. There is no evidence of interatrial shunt. The right atrium is normal in size. Aortic Valve The aortic valve structure and function is likely normal. There is no aortic valve stenosis. There is no aortic valve regurgitation. Mitral Valve Normal mitral valve structure and function. There is mild mitral valve regurgitation. There is no mitral valve stenosis. Pulmonic Valve The pulmonic valve was not well visualized. Tricuspid Valve Normal tricuspid valve structure. There is trace tricuspid valve regurgitation. The right ventricular systolic pressure is normal. The right ventricular systolic pressure is 32 mmHg. Normal right atrial pressure. There is no evidence of pulmonary hypertension. Great Vessels All visible segments of the aorta are normal in size. The pulmonary artery was not well visualized. There is no dilatation of the ascending aorta measuring 3.40 cm. Venous The inferior vena cava is normal in size and collapses greater than 50% with inspiration. Pericardium/Pleural There is no evidence of pericardial effusion. Prior Study Comparison No significant change compared to prior study dated: 05/24/2020. Measurements 2D Linear Measurements IVSd: 1.33 0.6-0.9/0.6-1.0 cm LVIDd: 4.39 3.9-5.3/4.2-5.9 cm LVIDd Index: 2.20 2.4-3.2/2.2-3.1 cm/m2 LVIDs: 2.79 2.0-3.6 cm LVPWd: 0.80 0.7-1.1 cm LA Diam: 4.00 2.7-3.8/3.0-4.0 cm LAIDs Index: 2.00 1.5-2.3 cm/m2 LV Mass: 200.00 67-162/88-224 g LV Mass Index: 100.00 43-95/49-115 g/m2 LVOT Diam: 2.10 3.0+(-)1.3 cm 2D Systolic Function EF 4C: 65.80 >55% EF 2C: 68.80 >55% EF BiP: 67.70 >55% Mitral Valve MV Pk E: 1.05 MV PK A: 0.69 MV Decel Time: 215.00 E/A: 1.50 E'Lateral: 8.49 E'Medial: 7.51 E/E' Med: 14.00 E/E' Lat: 12.40 PHT: 63.00 MVA PHT: 3.49 Decel [place]: 4.87 Aortic Valve AoV Pk David: 1.31 AoV Mn David: 0.91 AoV VTI: 0.33 AoV Pk Grad: 7.00 Aov Mn Grad: 4.00 VENESSA Cont.VTI: 2.45 LVOT LVOT Pk David: 0.88 LVOT Mn David: 0.56 LVOT VTI: 0.23 LVOT Pk Grad: 3.00 LVOT Mn Grad: 1.00 LVOT Diam: 2.10 LVOT Area: 3.46 Diastolic Function MV Pk E: 1.05 MV Pk A: 0.69 E/A: 1.50 E'Medial: 7.51 E/E' Med: 14.00 E' Laterial: 8.49 E/E' Lat: 12.40 Right Ventricle TAPSE (mm): 19.00 TVS' David: 10.00 Tricuspid Valve TR Pk David: 2.67 TR Pk Grad: 29.00 RA Press: 3.00 RVSP: 32.00 Great Vessels Aorta Ao Asc: 3.40 2.1-3.4 cm Updated in Other Vendor System with Status of Final Marcio Bey MD electronically signed on 07/09/2024 12:08:15 PM with status of Final
== END ==
LOC: HO.CARD 07:47
PROVIDERS: PCP Family Medicine; Visit Provider Internal Medicine
DX: I25.10 Atherosclerotic heart disease of native coronary artery without angina pectoris (principal)
CPT/HCPCS: 93306; 93356

== ENCOUNTER → 2024-07-08 07:50 | Outpatient (BNV) | payer OTHER, SELFPAY | PROVIDERS: PCP Family Medicine; Visit Provider Internal Medicine Cardiovascular Disease | DX: I34.0 Nonrheumatic mitral (valve) insufficiency (principal) | CPT/HCPCS: 93306; 93356 ==

== ENCOUNTER 2024-07-21 10:07 | Outpatient (REF) | payer OTHER, SELFPAY ==
[2024-07-21 11:18] LABS: Hematocrit 34.5 % (42.0-52.0); Hemoglobin 11.4 g/dl (14.0-18.0); Mean Corpuscular Hemoglobin 27.7 pg (27.0-33.0); Mean Corpuscular Volume 83.7 fL (80.0-98.0); Mean Platelet Volume 10.3 fL (9.4-12.4); Platelet Count 175 X10*3/uL (160-400); Red Blood Count 4.12 X10*6/uL (4.60-5.80); Red Cell Distribution Width 13.6 % (11.0-16.0); White Blood Count 5.8 X10*3/uL (4.8-10.8)
[2024-07-21 11:30] LABS: Estimated Average Glucose 140 mg/dL; Hemoglobin A1C 145.8542 umol/L; Hemoglobin A1c % 6.5 % (<6.0); Total Hemoglobin (HGBA1C) 3086.5596 umol/L
[2024-07-21 12:21] LABS: Alanine Aminotransferase 16 U/L (0-40); Alkaline Phosphatase 60 U/L (39-117); Anion Gap 9 (12-20); Aspartate Amino Transferase 22 U/L (5-37); Bilirubin Direct 0.2 mg/dL (0.0-0.5); Bilirubin Total 0.3 mg/dL (0.0-1.0); Blood Urea Nitrogen 20 mg/dL (9-16); Carbon Dioxide 27 mmol/L (22-29); Chloride 107 mmol/L (96-108); Cholesterol 134 mg/dL (<200); Estimated Glomerular Filt Rate 57; Ferritin 11 ng/mL (20-250); Free T4 (Free Thyroxine) 1.14 ng/dL (0.71-1.85); Glucose Random 117 mg/dL (60-115); HDL Cholesterol 51 mg/dL (>40); Iron 46 mcg/dL (45-160); LDL Cholesterol Calculated 60 mg/dL (<100); Percent Iron Saturation 12 % (15-50); Sodium 139 mmol/L (135-145); Thyroid Stimulating Hormone 1.43 uIU/mL (0.32-4.0); Total Iron Binding Capacity 371 mcg/dL (228-428); Total Protein 7.2 g/dL (6.5-8.0); Triglycerides 119 mg/dL (<150); Unsaturated Iron Binding 325 ug/dL; Vitamin D 25-OH Total 45.9 ng/mL (>30)
[2024-07-21 12:34] LABS: Folate 12.8 ng/mL (> or = 4.0)
[2024-07-21 13:06] LABS: Vitamin B12 380 pg/mL (200-900)
== END 2024-07-21 10:08 | disposition home or self-care (01) ==
LOC: HO.HHCL 10:07
PROVIDERS: Visit Provider Family Medicine
DX: R42 Dizziness and giddiness (principal); Z13.1 Encounter for screening for diabetes mellitus
CPT/HCPCS: 36415; 80048; 80061; 80076; 82306; 82607; 82728; 82746; 83036; 83540; 84439; 84443; 85027

== ENCOUNTER 2024-08-28 09:29 | Outpatient (AMB) | payer OTHER, SELFPAY ==
[2024-08-28 09:39] VITALS: BP 140/88; PULSE 56; O2SAT 97; BMI 29.3
--- NOTE | 2024-08-28 09:39 | HO.NEPHOV ---
Vital Signs 08/28/24 09:39 Height 5 ft 9 in Weight 198 lb 2 oz BMI 29.3 BP 140/88 H Blood Pressure Location Rt brachial Position Sitting Pulse 56 Pulse Source Pulse Oximeter Pulse Oximetry (%) 97 Oxygen Delivery Method Room Air Intake Visit Reasons: INP: Essential (primary) hypertension/ LVM Sander Portable Machine Required: No Accompanied by: Self / Same As Patient Allergies amoxicillin [AMOXICILLIN] Allergy (Severe, Verified 08/28/24 09:43) Angioedema cephalexin [From KEFLEX] Allergy (Severe, Verified 08/28/24 09:43) Testicle swelling, Angioedema ezetimibe [Zetia] Allergy (Severe, Verified 08/28/24 09:43) Anaphylaxis hydrochlorothiazide Allergy (Severe, Verified 08/28/24 09:43) dehydrate Vpbklxm-TGB-PxN Reductase Inhibitor [[id number]-WJC REDUCTASE INHIBITOR] Allergy (Severe, Verified 08/28/24 09:43) Anaphylaxis diphenhydramine [From BENADRYL] Adverse Reaction (Unknown, Verified 08/28/24 09:43) Muscle spasms/twitching spironolactone Adverse Reaction (Verified 08/28/24 09:43) Vomiting Medication List - Last Reconciled 08/28/24 by Agus Nettles MD albuterol sulfate 2.5 mg inhalation PRN alirocumab (Praluent Pen) 75 mg subcut Q2W 90 days amlodipine 10 mg PO DAILY aspirin (Adult Low Dose Aspirin) 81 mg PO DAILY cholecalciferol (vitamin D3) 50 mcg PO DAILY clonidine HCl 0.3 mg PO BID epinephrine IM fexofenadine 180 mg PO DAILY hydralazine 100 mg PO TID lorazepam 1 mg PO DAILY PRN omeprazole 20 mg PO BID sertraline 150 mg PO DAILY timolol maleate 0.5% 1 drp ophthalmic (eye) DAILY travoprost 0.004% 0 drps ophthalmic (eye) Do you need a note to return to daycare/school/sports/work: No HPI Comments Details: [age] man with resistant hypertension. He has mild CKD in setting setting of longstanding hypertension. Recently the systolic blood pressure was around 200 mm Hg. Hydralazine was increased from 20 mg t.i.d. up to 100 mg t.i.d.. Underwent a renal Doppler which did not reveal any renal artery stenosis. Most recent EGFR of 54 mL/minute History of anemia he has iron-deficiency has undergone colonoscopy few years ago. He is on iron supplementation Initial blood pressure was acceptable however repeat blood pressure was 220/80 mm Hg. [facility] Medical History History of anaphylaxis Statin intolerance Obstructive sleep apnea (adult) (pediatric) Chronic obstructive pulmonary disease, unspecified Chronic kidney disease, unspecified Essential (primary) hypertension Type 2 diabetes mellitus without complications 1st degree AV block Atherosclerotic cardiovascular disease Surgical History History of total knee replacement History of tonsillectomy History of cataract surgery Family History Father No problems noted. Mother No problems noted. Social History Alcohol intake: former Patient Tobacco Use Status: Former Tobacco user Years Smoked: 20 e-Cigarette/Vaping Use: Never Used Substance Use Type: Marijuana Review of Systems Const Denies fever(s) and Denies weight loss Card Denies chest pain Resp Denies cough and Denies hemoptysis GI Denies abdominal pain, Denies diarrhea and Denies nausea Musc Denies back pain Neuro Denies focal weakness Physical Exam Vital Signs: Last Vital Signs Pulse 56 08/28/24 09:39 BP 140/88 H 08/28/24 09:39 Pulse Ox 97 08/28/24 09:39 Oxygen Delivery Method Room Air 08/28/24 09:39 BMI result Body Mass Index 29.3 Comfortable Neck supple no JVD. Lungs entry equal no rales. Heart S1-S2 heard no gallop or rub. Abdomen soft nontender. Neuro alert awake oriented. No asterixis. Extremities no edema. Results Reviewed Results Reviewed: US/US renal BI IMPRESSION: 1. Bilateral renal cysts. Stable 2. No evidence of renal artery stenosis. Criteria: NORMAL: Renal artery peak systolic velocities < 180 cm/s. Renal aortic ratio < 3.5 Normal renal size. < 60% STENOSIS: Renal artery peak systolic velocities > 180 cm/s. Renal aortic ratio < 3.5 Renal size <2 cm difference between sides. > 60% STENOSIS Renal artery peak systolic velocities > 180 cm/s. Renal aortic ratio > 3.5 Renal size >2 cm difference between sides. Aortic PSV > 140 cm/s with normal renal artery PSV made over estimate severity. Aortic PSV > 100 cm/s with normal renal artery PSV may underestimate severity. US/US renal BI IMPRESSION: 1. There are benign, simple and likely benign, mildly complex bilateral renal cysts, as detailed. No further imaging follow-up is recommended. 2. 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 Nephrology Results: Hgb 11.4 g/dl (14.0-18.0) L 07/21/24 WBC 5.8 X10*3/uL (4.8-10.8) 07/21/24 Plt Count 175 X10*3/uL (160-400) 07/21/24 Sodium 139 mmol/L (135-145) 07/21/24 Potassium 4.0 mmol/L (3.3-5.1) 07/21/24 Chloride 107 mmol/L (96-108) 07/21/24 Carbon Dioxide 27 mmol/L (22-29) 07/21/24 BUN 20 mg/dL (9-16) H 07/21/24 Creatinine 1.22 mg/dL (0.5-1.4) 07/21/24 Calcium 10.0 mg/dL (8.4-10.2) 07/21/24 Urine Creatinine 177.10 mg/dL 10/02/23 Renal US 07/03/24 Assessment & Plan Assessment & Plan (1) Essential (primary) hypertension: Code(s): I10 - Essential (primary) hypertension Category: Medical (2) Chronic kidney disease, unspecified: Code(s): N18.9 - Chronic kidney disease, unspecified Category: Medical Qualifiers: Chronic kidney disease stage: unspecified stage Qualified Code(s): N18.9 - Chronic kidney disease, unspecified Plan 79-year-old man with resistant hypertension and CKD 3A. Cory has essential hypertension however given the fact that he has resistant hypertension I would consider secondary causes. Renal artery stenosis seems unlikely based on the Doppler ultrasound. I will obtain a 24 hour ambulatory blood pressure monitoring. Check serum aldosterone and plasma renin activity along with BMI. In the meantime I will continue the current medications encouraged him to stand low-sodium diet. Orders: Orders AMB 24 HR B/P Monitor PLACEMENT Today I10 - Essential (primary) hypertension, N18.9 - Chronic kidney disease, unspecified Aldosterone Today I10 - Essential (primary) hypertension, N18.9 - Chronic kidney disease, unspecified Renin Today I10 - Essential (primary) hypertension, N18.9 - Chronic kidney disease, unspecified Parathyroid Hormone Intact Today I10 - Essential (primary) hypertension, N18.9 - Chronic kidney disease, unspecified Basic Metabolic Panel Today I10 - Essential (primary) hypertension, N18.9 - Chronic kidney disease, unspecified VMA Today I10 - Essential (primary) hypertension, N18.9 - Chronic kidney disease, unspecified Coding Level of Care Code New Pt Level 4 (74369) Diagnoses Essential (primary) hypertension I10 Chronic kidney disease, unspecified CKD stage N18.9 Chronic kidney disease stage: unspecified stage
== END 2024-08-28 10:07 | disposition home or self-care (01) ==
PROVIDERS: PCP Family Medicine; Referring Provider Internal Medicine; Visit Provider Internal Medicine Hypertension Specialist
DX: I12.9 Hypertensive chronic kidney disease with stage 1 through stage 4 chronic kidney disease, or unspecified chronic kidney disease (principal); N18.31 Chronic kidney disease, stage 3a
CPT/HCPCS: 99204

== ENCOUNTER → 2024-08-28 09:29 | Outpatient (BNVA) | payer OTHER, SELFPAY | PROVIDERS: PCP Family Medicine; Referring Provider Internal Medicine; Visit Provider Internal Medicine Hypertension Specialist | DX: I1A.0 Resistant hypertension (principal); I12.9 Hypertensive chronic kidney disease with stage 1 through stage 4 chronic kidney disease, or unspecified chronic kidney disease; N18.9 Chronic kidney disease, unspecified | CPT/HCPCS: 99202 ==

== ENCOUNTER 2024-08-28 10:27 | Outpatient (REF) | payer OTHER, SELFPAY ==
[2024-08-28 12:18] LABS: Anion Gap 11 (12-20); Blood Urea Nitrogen 28 mg/dL (9-16); Calcium 9.8 mg/dL (8.4-10.2); Carbon Dioxide 25 mmol/L (22-29); Chloride 105 mmol/L (96-108); Estimated Glomerular Filt Rate > 60; Glucose Random 147 mg/dL (60-115); Potassium 4.2 mmol/L (3.3-5.1); Sodium 137 mmol/L (135-145)
[2024-08-28 12:19] LABS: Parathyroid Hormone Intact 38.6 pg/mL (8.7-77.1)
[2024-09-03 17:28] LABS: Renin 0.54 ng/mL/h (0.25-5.82)
== END 2024-08-28 10:28 | disposition home or self-care (01) ==
LOC: HO.10HDL 10:27
PROVIDERS: Visit Provider Internal Medicine Hypertension Specialist
DX: I12.9 Hypertensive chronic kidney disease with stage 1 through stage 4 chronic kidney disease, or unspecified chronic kidney disease (principal); N18.9 Chronic kidney disease, unspecified
CPT/HCPCS: 36415; 80048; 82088; 83970; 84244

== ENCOUNTER 2025-04-09 08:15 | Outpatient (AMB) | payer MEDICARE, SELFPAY ==
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
[2025-04-09 08:13] VITALS: BP 138/70; BMI 27.0
--- OUTSIDE RECORDS SUMMARY | 2025-04-09 08:26 | XMS_ITS | Encounter Summary ---
Author Organization [employer] Address [address] [place] [address] Care Team Providers Care Waste Disposal Leakage Tester Name Role Phone Andree Turner DO Primary Care Provider [phone] Jim Birmingham DDCarlos Unavailable [phone] Reason for Visit * Reason Comments Med Change Request Encounter Details Date Type Department Care Team ([facility] st Contact Info) Description 05/23/2023 Refill [facility] [address], [place] [phone] Andree Turner DO [address] [place], [place] [phone] Social History Tobacco Use Types Packs/Day Years Used Date Smoking Tobacco: Former Cigarettes Passive Smoke Exposure: Never Smokeless Tobacco: Never Alcohol Use Standard Drinks/Week Comments Never 0 (1 standard drink = 0.6 oz pur e alcohol) Depression Answer Date Recorded Patient Health Questionnaire-9 Score 0 10/17/2022 Depression Answer Date Recorded Patient Health Questionnaire-2 Score 0 10/17/2022 Sex and Gender Information Value Date Recorded Sex Assigned at Male 07/02/2022 10:21 AM EDT Legal Sex Male 10:21 AM EDT Gender Identity Male 07/02/2022 10:21 AM EDT Sexual Orientation Straight 07/02/2022 10 :21 AM EDT documented as of this encounter Miscellaneous Notes * Telephone Encounter - Veena Connelly - 11/05/2023 2:52 PM EST Call was made to Refill nurse regarding if PA needed seeing that it was discontinued by provider. Refill nurse stated that medication was fill but not picked up. Script is still good for a year. documented in this encounter Plan of Treatment Upcoming Encounters Date Type Department Care Team (Late st Contact Info) Description 06/04/2025 10:00 AM EDT Telemedicine [facility] [address] [place] [address] Kenya Connell, EMILY documented as of this encounter Visit Diagnoses Not on filedocumented in this encounter Additional Health Concerns Assessment Noted Time PHQ-9 Depression Total Score: 0 10/17/19 23 9:05 AM EST documented as of this encounter Care Teams Waste Disposal Leakage Tester Relationship Specialty Start Date End Date Andree Turner DO [address] [place] [id number] PCP - General Family Medicine 09/02/18 Jim Birmingham DDS [address] [place] [id number] Dental Neurodiagnostic Tech 11/19/24 documented as of this encounter
--- OUTSIDE RECORDS SUMMARY | 2025-04-09 08:26 | XMS_ITS | Clinical Summary ---
Author Organization [facility] Facility Address [address] [address] Care Team Providers Care Station Agent Name Role Phone AngelMarcelle carynifer Primary Care Provider Unava ilable Allergies Active Allergy Reactions Criticality Noted Date Comments Cephalexin Other (see comments) 09/11/2019 Ezetimibe Anaphylaxis High 09/11/2019 Statins Other (see comments) 09/11/2019 Medications fluticasone (FLONASE ALLERGY RELIEF) 50 MCG/ACT nasal spray Administer 2 puffs into each nostril 1 (one) time each day Active omeprazole (PriLOSEC) [address] capsule Take 1 capsule by mouth 2 (two) times a day Active Travoprost, KESHA Free, (TRAVATAN Z) 0.004 % solution Comments: Filled Date: Nov 06 2018 12:00AM Patient Notes: INSTILL 1 DROP IN BOTH EYES QHS Duration: 90 8 Active sertraline (ZOLOFT) 100 MG tablet Comments: Filled Date: Dec 12 2018 12:00AM Duration: 90 Active losartan (COZAAR) 100 MG tablet Comments: Filled Date: Dec 01 2018 12:00AM Duration: 90 Active LORazepam (ATIVAN) 1 MG tablet Take 1 tablet by mouth at bed time Active ipratropium HFA (ATROVENT HFA) 17 MCG/ACT inhaler 2 puffs by Other route 4 (four) times a day Active fluticasone-kodi meterol (ADVAIR DISKUS) 250-50 MCG/DOSE diskus inhaler 1 puff by Other route 2 (two) times a day Active cloNIDine (CATAPRES) 0.3 MG tablet Take 1 tablet by mouth 2 (two) times a day Active Cetirizine HCl (ZyrTEC ALLERGY) 10 MG capsule Take 1 capsule by mouth 1 (one) time each day Active amLODIPine (NORVASC) 10 MG tablet Take 1 mg by mouth 1 (one) time each day Active acetaminophen (TYLENOL 8 HOUR) 650 MG 8 hr tablet Take 1 tablet by mouth 1 (one) time each day Active hydroCHLOROthia zide (HYDRODIURIL) 25 MG tablet Take 25 mg by mouth 1 (one) time each day Active timolol (TIMOPTIC) 0.25 % ophthalmic solution Administer 0.5 drops into both eyes 1 (one) time each day Active Cholecalciferol (VITAMIN D3) 50 MCG (2000 UT) tablet Take 1 capsule by mouth 1 (one) time each day Active cholecalciferol (VITAMIN D-3) 50 MCG (2000 UT) capsule Take 1 capsule by mouth 1 (one) time each day Active Active Problems Problem Noted Date Diagnosed Date Chronic kidney disease stage 3 09/11/2019 Essential hypertension 09/11/2019 Multiple renal cysts 09/11/2019 Type 2 diabetes mellitus 09/11/2019 Family History Medical History Relation Comments Diabetes Mother Heart disease Mother Hypertension Mother Diabetes Sibling 1 Hypertension Sibling 2 Relation Status Comments Mother Sibling 1 Sibling 2 Social History Tobacco Use Types Packs/Day Years Used Date Smoking Tobacco: Former Cigarettes Comments:Smoking History Inf o:Unknown Alcohol Use Standard Drinks/Week Comments No 0 (1 standard drink = 0.6 oz pur e alcohol) Sex and Gender Information Value Date Recorded Sex Assigned at Not on file Legal Sex Male 4:33 PM EST Gender Identity Not on file Sexual Orientation Not on file Last Filed Vital Signs Vital Sign Reading Time Taken Comments Blood Pressure 124/66 06/10/2019 12:00 PM EDT Pulse - - Temperature - - Respiratory Rate - - Oxygen Saturation - - Inhaled Oxygen Concentration - - Weight 90.7 kg (200 lb) 06/10/2019 12:00 PM EDT Height 175.3 cm (5' 9 ) 06/10/2019 12:00 PM EDT Body Mass Index 29.53 06/10/2019 12:00 PM EDT Plan of Treatment Health Maintenance Due Date Last Done Comments Pneumococcal Vaccine: 50+ Ye ars (2 of 2 - PPSV23, PCV20, or PCV21) 12/10/2014 10/15/2014 Diabetes: Hemoglobin A1C 09/11/2019 Diabetes: Ophthalmology Exam 09/11/2019 Diabetes: Pedal Pulse Checked 09/11/2019 Diabetes: Sensory Foot Exam 09/11/2019 Diabetes: Visual Foot Exam 09/11/2019 Influenza Vaccine (#1) 2025 Pneumococcal Vaccine: Peds ( 0 to 5 Years) and At-Risk Patients (6 to 49 Years) Discontinued 10/15/2014 Hepatitis B Vaccine Aged Out No longe r eligible based on patient's age to complete this topic Insurance [place] [id number] Care Teams Station Agent Relationship Specialty Start Date End Date Andree Turner DO PCP - General 07/07/19
== END 2025-04-09 09:04 | disposition home or self-care (01) ==
LOC: HO.HCS 08:15
PROVIDERS: PCP Family Medicine; Visit Provider Nurse Practitioner Family
DX: I10 Essential (primary) hypertension (principal); I25.10 Atherosclerotic heart disease of native coronary artery without angina pectoris; I44.0 Atrioventricular block, first degree; E78.5 Hyperlipidemia, unspecified
CPT/HCPCS: 99213; G2211